=== PATIENT | female | born 1960 | race Caucasian/White ===

== ENCOUNTER → 2016-08-15 | Outpatient (REF) | payer OTHER ==
[~2016-08-15] MED LIST: *PREMTA; ATEN100T; DIOV80TA; EFFE75CA75; HYDR25TA6; PERC5TAB8
== END ==
LOC: M SFHCCLAY 07:25
PROVIDERS: ATTEND Nurse Practitioner Family
DX: R73.01 Impaired fasting glucose (principal); E78.4 Other hyperlipidemia; E55.9 Vitamin D deficiency, unspecified

== ENCOUNTER → 2016-08-15 | Outpatient (REF) | payer OTHER | LOC: M LAB REF 17:31 | PROVIDERS: ATTEND Nurse Practitioner Women's Health | DX: Z12.4 Encounter for screening for malignant neoplasm of cervix (principal) ==

== ENCOUNTER → 2016-08-23 | Outpatient (CLI) | payer OTHER ==
--- NOTE | 2016-08-23 12:04 | REPMRS ---
Patient History The patient states she had a clinical breast exam in 08/2016. Patient is postmenopausal and has history of other cancer at age 49. No known family history of cancer. Digital Woman Screen Mammo: August 23, 2016 - Exam #: [id number] Bilateral CC and MLO view(s) were taken. Technologist: Johanna Hayes, Technologist Prior study comparison: March 07, 2005, bilateral screening mammogram performed at [facility]. FINDINGS: There are scattered fibroglandular densities. There is no evidence of cancer on this mammogram. ASSESSMENT: BI-RADS/ACR category 2 mammogram. Benign finding(s). Recommendation Routine screening mammogram of both breasts in 1 year (for women over age 40). This mammogram was interpreted with the aid of an FDA-approved computer-aided dectection system. Electronically Signed By: Dominic Rodriguez MD 08/23/16 [id number]
--- NOTE | 2016-08-23 14:08 | REP ---
PELVIC ULTRASOUND: Real-time sonographic evaluation of the pelvis is performed utilized transabdominal and endovaginal technique. Bladder measures 3.3 x 4.1 x 7.3 cm. Uterus measures 8.1 x 3.8 x 5.5 cm. Endometrium is significantly thickened with heterogeneous echotexture with a maximum AP diameter of 17 mm. Nabothian cysts are seen in the region of the cervix. Largest is 1.3 cm in diameter. The ovaries appear normal in size and echotexture, right ovary measures 2.1 x 1.2 x 2.3 cm and left ovary 2.1 x 1.4 x 2.3 cm. I see no adnexal mass or free fluid. IMPRESSION: Significantly thickened endometrium with heterogeneous echotexture. Differential diagnosis would include endometrial neoplasm or hyperplasia. Recommend endometrial sampling.
== END ==
LOC: M WHC 09:55
PROVIDERS: ATTEND Nurse Practitioner Women's Health
DX: Z12.31 Encounter for screening mammogram for malignant neoplasm of breast (principal); Z78.0 Asymptomatic menopausal state; N95.0 Postmenopausal bleeding
CPT/HCPCS: 76830; 76856; G0202

== ENCOUNTER → 2016-08-23 | Outpatient (REF) | payer OTHER | LOC: M SFHCWAGY 11:12 | PROVIDERS: ATTEND Nurse Practitioner Women's Health | DX: N95.0 Postmenopausal bleeding (principal) ==

== ENCOUNTER → 2016-10-18 | Day surgery (SDC) | payer OTHER ==
[~2016-10-18] VITALS: Ht 157.5 cm; Wt 87.0 kg
[~2016-10-18] MED LIST changes: +ATEN100T PO; +DRIS50002 PO; +HYDR25TAB PO; +KETOROLAC 30 MG/ML VIAL (J1885) IV SCH; +KETOROLAC 60 MG/2 ML VIAL (J1885) As Ordered ONE; +LIDOCAINE 2% INJ 100 MG/5 ML SDV (FOR ANES.) As Ordered ONE; +LR 1,000 ML IV ONE; +LR 1,000 ML IV SCH; +MIDAZOLAM INJ 2 MG/2 ML VIAL (J2250) As Ordered ONE; +ONDANSETRON 4MG/2ML VIAL (J2405) As Ordered ONE; +ONDANSETRON 4MG/2ML VIAL (J2405) IV PRN; +PERCOCET 5MG/325MG TAB PO PRN; +PRAV10TA3 PO; +PROPOFOL 200 MG/20 ML VIAL As Ordered ONE; +VALS80TA PO; +dexameTHASONE 4 MG/ML 1ML VIAL (J1100) As Ordered ONE; +ePHEDrine SULFATE 25 MG/5 ML(5MG/ML) SYRINGE As Ordered ONE; +fentaNYL 100 MCG/2 ML INJECTION (J3010) As Ordered ONE; +fentaNYL 100 MCG/2 ML INJECTION (J3010) IV PRN
[2016-10-18 12:22] LABS: MEAN CORPUSCULAR HEMOGLOBIN 32.5 pg (27.0-33.0); MEAN CORPUSCULAR HGB CONC 34.5 g/dl (32.0-36.5); MEAN CORPUSCULAR VOLUME 94.2 fl (80.0-96.0); RED CELL DISTRIBUTION WIDTH 11.3 % (11.5-14.5); WHITE BLOOD COUNT 9.6 K/mm3 (4.0-10.0)
[2016-10-18 16:51] VITALS: BP 115/70
--- NOTE | 2016-10-18 18:27 | RO ---
DATE OF PROCEDURE: 10/18/2016 PREPROCEDURE DIAGNOSIS: 1. Postmenopausal bleeding. POSTPROCEDURE DIAGNOSES: 1. Postmenopausal bleeding. 2. Endometrial polyps. PROCEDURE PERFORMED: Hysteroscopy, MyoSure with dilation and curettage. SURGEON: Karmen Acosta MD PUBLIC AFFAIRS OFFICER: None. ANESTHESIA: General anesthesia via laryngeal mask airway. ESTIMATED BLOOD LOSS: 5 mL. SPECIMENS: 1. Endometrial polyps. 2. Endometrial curettings. PREOPERATIVE ANTIBIOTICS: None. INTRAVENOUS FLUIDS: 1000 mL of lactated Ringer's solution. URINE OUTPUT: 300 mL. OPERATIVE FINDINGS: There were two posterior endometrial polyps, one approximately 2 cm in size, followed by endometrial polyp approximately 6 cm in size. Bilateral ostia were visualized with the remainder of the endometrial cavity was atrophic consistent with the patient's age. DESCRIPTION OF PROCEDURE: After informed consent was obtained and written consent was reviewed, the patient was then brought to the operating room where general anesthesia was obtained. She was then placed in the lithotomy position and was prepped and draped in a normal sterile fashion. Time out in the operating room was then performed identifying the patient, procedure to be performed, as well as drug allergies. A bivalve speculum was then placed revealing the cervix. The anterior lip of the cervix was grasped with a single tooth tenaculum. The cervix was then sequentially dilated using Hanks dilators. The hysteroscope was then advanced through the cervical os and the endometrial cavity was surveyed with the above noted findings. Next, the MyoSure was then inserted through the hysteroscope and endometrial polyps were morcellated with good hemostasis noted. The hysteroscope was then removed. A sharp curette was then advanced through the cervical os to the level of the fundus and the uterus was curetted in a 360 degree fashion with minimal muscle tissue obtained. Tenaculum was then removed from the cervix. Tenaculum sites were found to be hemostatic. Speculum was removed, in and out catheter was performed productive of 300 mL of clear urine. The patient was then taken out of the lithotomy position, was awakened from general anesthesia and taken to recovery in stable condition. Counts were correct.
== END | disposition home or self-care (01) ==
LOC: M SDC 11:52
PROVIDERS: ATTEND Obstetrics & Gynecology
DX: N95.0 Postmenopausal bleeding (principal); N84.0 Polyp of corpus uteri; N93.8 Other specified abnormal uterine and vaginal bleeding; I10 Essential (primary) hypertension; F32.9 Major depressive disorder, single episode, unspecified; E78.00 Pure hypercholesterolemia, unspecified; K76.0 Fatty (change of) liver, not elsewhere classified; R91.1 Solitary pulmonary nodule; E11.9 Type 2 diabetes mellitus without complications; R06.83 Snoring; Z79.899 Other long term (current) drug therapy; Z85.118 Personal history of other malignant neoplasm of bronchus and lung; Z78.0 Asymptomatic menopausal state; Z87.891 Personal history of nicotine dependence
CPT/HCPCS: 36415; 58558; 85027; 86850; 86900; 86901; 88305; J1100; J1885; J2250; J2405; J3010

== ENCOUNTER → 2016-10-23 | Outpatient (CLI) | payer OTHER ==
[~2016-10-23] MED LIST changes: -KETOROLAC 30 MG/ML VIAL (J1885) IV SCH; -KETOROLAC 60 MG/2 ML VIAL (J1885) As Ordered ONE; -LIDOCAINE 2% INJ 100 MG/5 ML SDV (FOR ANES.) As Ordered ONE; -LR 1,000 ML IV ONE; -LR 1,000 ML IV SCH; -MIDAZOLAM INJ 2 MG/2 ML VIAL (J2250) As Ordered ONE; -ONDANSETRON 4MG/2ML VIAL (J2405) As Ordered ONE; -ONDANSETRON 4MG/2ML VIAL (J2405) IV PRN; -PERCOCET 5MG/325MG TAB PO PRN; -PROPOFOL 200 MG/20 ML VIAL As Ordered ONE; -dexameTHASONE 4 MG/ML 1ML VIAL (J1100) As Ordered ONE; -ePHEDrine SULFATE 25 MG/5 ML(5MG/ML) SYRINGE As Ordered ONE; -fentaNYL 100 MCG/2 ML INJECTION (J3010) As Ordered ONE; -fentaNYL 100 MCG/2 ML INJECTION (J3010) IV PRN
--- NOTE | 2016-10-24 05:27 | REP ---
Clinical: Follow-up pulmonary nodule. Comparison: 10/23/2015, 10/26/2014. Findings: The bilateral lung raza are relatively well aerated, symmetric and essentially clear. A small 4 mm noncalcified nodule in the anterior right upper lobe remains stable. No new acute consolidation, nodule or mass lesion appreciated. No pleural effusion/reaction. No pneumothorax. Tracheobronchial tree is patent. Mediastinum including thoracic aorta, vasculature and heart/pericardium are normal. No adenopathy. Surrounding musculoskeletal structures are intact. Impression: 1. Stable 4 mm noncalcified nodule in the right upper lobe requires no further evaluation. 2. No new acute mediastinal or pleuroparenchymal process appreciated. Signed by Major Toledo MD 10/24/2016 05:19 A
== END ==
LOC: M RAD 14:44
PROVIDERS: ATTEND Internal Medicine Pulmonary Disease
DX: R91.8 Other nonspecific abnormal finding of lung field (principal)

== ENCOUNTER → 2016-12-06 | Outpatient (REF) | payer OTHER ==
[2016-12-06 12:30] LABS: MEAN CORPUSCULAR HEMOGLOBIN 32.4 pg (27.0-33.0); MEAN CORPUSCULAR HGB CONC 34.9 g/dl (32.0-36.5); MEAN CORPUSCULAR VOLUME 92.8 fl (80.0-96.0); RED CELL DISTRIBUTION WIDTH 11.2 % (11.5-14.5); WHITE BLOOD COUNT 7.4 K/mm3 (4.0-10.0)
[2016-12-06 12:35] LABS: ALBUMIN 3.8 GM/DL (3.2-5.2); ALBUMIN/GLOBULIN RATIO 1.15 (1.00-1.93); ALKALINE PHOSPHATASE 44 U/L (45-117); ALT/SGPT 41 U/L (12-78); ANION GAP 7 MEQ/L (8-16); AST/SGOT 17 U/L (15-37); BILIRUBIN,TOTAL 0.4 MG/DL (0.2-1.0); BLOOD UREA NITROGEN 14 MG/DL (7-18); CALCIUM LEVEL 9.6 MG/DL (8.5-10.1); CARBON DIOXIDE LEVEL 28 MEQ/L (21-32); CHLORIDE LEVEL 106 MEQ/L (98-107); CHOLESTEROL LEVEL 146 MG/DL (<200); CREATININE FOR GFR 0.82 MG/DL (0.55-1.02); GLOMERULAR FILTRATION RATE > 60.0 (>51); GLUCOSE, FASTING 110 MG/DL (70-105); POTASSIUM SERUM 3.7 MEQ/L (3.5-5.1); SODIUM LEVEL 141 MEQ/L (136-145); TOTAL PROTEIN 7.1 GM/DL (6.4-8.2); TRIGLYCERIDES LEVEL 105 MG/DL (<150)
== END ==
LOC: M SFHCCLAY 07:21
PROVIDERS: ATTEND Nurse Practitioner Family
DX: I10 Essential (primary) hypertension (principal); E11.9 Type 2 diabetes mellitus without complications; E78.4 Other hyperlipidemia; E55.9 Vitamin D deficiency, unspecified

== ENCOUNTER → 2017-04-02 | Outpatient (REF) | payer OTHER | LOC: M SFHCCLAY 07:17 | PROVIDERS: ATTEND Nurse Practitioner Family | DX: E55.9 Vitamin D deficiency, unspecified (principal); E11.9 Type 2 diabetes mellitus without complications; E78.4 Other hyperlipidemia ==

== ENCOUNTER → 2017-08-08 | Outpatient (REF) | payer OTHER ==
[2017-08-08 12:05] LABS: CHOLESTEROL LEVEL 161 MG/DL (<200); CHOLESTEROL RISK RATIO 2.639 (<5); HDL CHOLESTEROL 61 MG/DL (>40); NON-HDL-C 100 MG/DL; TRIGLYCERIDES LEVEL 95 MG/DL (<150)
[2017-08-08 12:09] LABS: TOTAL 25(OH) VITAMIN D 70.7 NG/ML (30.0-100.0)
[2017-08-08 12:43] LABS: ESTIMATED AVERAGE GLUCOSE 128 MG/DL (60-110); HEMOGLOBIN A1c 6.1 %
== END ==
LOC: M SFHCCLAY 07:21
DX: E11.9 Type 2 diabetes mellitus without complications (principal); E78.4 Other hyperlipidemia; E55.9 Vitamin D deficiency, unspecified

== ENCOUNTER 2017-09-09 16:45 | Inpatient (IN) | payer OTHER ==
[2017-09-09] MEDS: NS 1,000 ML IV ×2 (18:00→19:15)
[2017-09-09 18:12] LABS: ABG BASE EXCESS -5.3 (-2.0-2.0); ABG HCO3 16.9 MEQ/L (22.0-26.0); ABG O2 SATURATION 97.2 % (95.0-99.0); ABG PARTIAL PRESSURE CO2 24.1 mmHg (35.0-45.0); ABG PARTIAL PRESSURE O2 92.7 mmHg (75.0-100.0); ABG STANDARD HCO3 20.1 MEQ/L (22.0-26.0); ABG TOTAL CO2 17.7 MEQ/L (22.0-29.0); ABG pH (ARTERIAL) 7.464 UNITS (7.350-7.450)
[2017-09-09 18:29] LABS: BASO % 0.1 % (0.0-1.0); HEMOGLOBIN 11.3 g/dl (12.0-15.5); LYMPH # 0.5 10^3/uL (1.5-4.5); LYMPH % 2.6 % (24.0-44.0); MEAN CORPUSCULAR HEMOGLOBIN 31.6 pg (27.0-33.0); MEAN CORPUSCULAR HGB CONC 36.5 g/dl (32.0-36.5); MEAN CORPUSCULAR VOLUME 86.6 fl (80.0-96.0); MONO % 9.6 % (0.0-5.0); NEUTROPHILS # 17.9 10^3/uL (1.8-7.7); NEUTROPHILS % 86.7 % (36.0-66.0); PLATELET COUNT, AUTOMATED 350 10^3/uL (150-450); RED BLOOD COUNT 3.58 10^6/uL (4.00-5.40); RED CELL DISTRIBUTION WIDTH 11.6 % (11.5-14.5); WHITE BLOOD COUNT 20.7 10^3/uL (4.0-10.0)
[2017-09-09 18:54] LABS: INR 1.19; PROTHROMBIN TIME 15.3 SECONDS (12.4-14.5)
[2017-09-09 18:55] LABS: PARTIAL THROMBOPLASTIN TIME 35.7 SECONDS (26.8-37.9)
[2017-09-09] MEDS: PIPERACILLIN/TAZOBACTAM SOD 4.5 GM in D5W MINI-BAG PLUS 50 ML IV (18:58)
[2017-09-09] MEDS: ACETAMINOPHEN 325 MG TAB PO (18:58)
[2017-09-09 19:00] LABS: LACTIC ACID SEPSIS PROTOCOL 1.7 MMOL/L (0.4-2.0)
[2017-09-09 19:28] LABS: INFLUENZA A AMPLIFICATION NEGATIVE (NEGATIVE); INFLUENZA B AMPLIFICATION NEGATIVE (NEGATIVE)
[2017-09-09 19:57] LABS: ALKALINE PHOSPHATASE 75 U/L (45-117); ALT/SGPT 31 U/L (12-78); AMYLASE 46 U/L (25-115); AST/SGOT 18 U/L (7-37); BILIRUBIN,DIRECT 0.3 MG/DL (0.0-0.2); BILIRUBIN,TOTAL 0.5 MG/DL (0.2-1.0); BLOOD UREA NITROGEN 72 MG/DL (7-18); CALCIUM LEVEL 7.9 MG/DL (8.5-10.1); CARBON DIOXIDE LEVEL 17 MEQ/L (21-32); CPK CREATINE PHOSPHOKINASE 24 U/L (26-192); CREATININE FOR GFR 2.32 MG/DL (0.55-1.30); GLUCOSE, FASTING 135 MG/DL (70-100); SODIUM LEVEL 138 MEQ/L (136-145)
[2017-09-09 19:58] LABS: TOTAL PROTEIN 6.5 GM/DL (6.4-8.2); TROPONIN I < 0.02 NG/ML (< 0.10)
[2017-09-09 20:00] LABS: CK-MB VALUE MASS < 1.0 NG/ML (<3.6); MB/CK RELATIVE INDEX 4.16 (< OR =4)
[2017-09-09 20:33] LABS: ALBUMIN 2.7 GM/DL (3.2-5.2); ALBUMIN/GLOBULIN RATIO 0.71 (1.00-1.93); ANION GAP 16 MEQ/L (8-16); CHLORIDE LEVEL 105 MEQ/L (98-107)
[2017-09-09] MEDS ORDERED: DEXTROSE 50% 50 ML SYRINGE IV (20:45)
[2017-09-09] MEDS ORDERED: GLUCAGON FOR INJ 1 MG VIAL (J1610) SC (20:45)
[2017-09-09] MEDS ORDERED: ONDANSETRON 4MG/2ML VIAL (J2405) IV (20:45)
[2017-09-09] MEDS ORDERED: GLUCOSE 4 GM CHEW TABLET PO (20:45)
[2017-09-09] MEDS ORDERED: ACETAMINOPHEN TAB 650MG DOSE (2X325MG) PO (20:45)
[2017-09-09] MEDS ORDERED: ONDANSETRON 4 MG TAB (S0181) PO (20:45)
[2017-09-09] MEDS ORDERED: NOREPINEPHRINE 4 MG/4 ML AMP As Ordered (20:48)
[2017-09-09] MEDS: NOREPINEPHRINE BITARTRATE 8 MG in D5W 492 ML IV (20:55)
[2017-09-09] MEDS: HumaLOG INSULIN (NovoLOG) PER UNIT SC (21:00)
[2017-09-09] MEDS ORDERED: LIDOCAINE 1% MDV 20ML VIAL As Ordered (21:40)
[2017-09-09] MEDS: KCL 40MEQ in NS 1000ML 1,000 ML IV (22:24)
[2017-09-09] MEDS: LIDOCAINE 1% MDV 20ML VIAL SC (22:26)
[2017-09-09 22:40] LABS: BEDSIDE GLUCOSE 161 MG/DL (70-105)
[2017-09-09] MEDS: POTASSIUM CHLORIDE 10 MEQ SR TABLET PO (23:34)
[2017-09-09 23:57] LABS: APPEARANCE, URINE HAZY (CLEAR); BACTERIA, URINE AUTO 1+ (NEGATIVE); BILIRUBIN, URINE AUTO NEGATIVE (NEGATIVE); BLOOD, URINE BLOOD 2+ (NEGATIVE); COLOR, URINE YELLOW (YELLOW); GLUCOSE, URINE (UA) AUTO NEGATIVE (NEGATIVE); KETONE, URINE AUTO NEGATIVE (NEGATIVE); LEUKOCYTE ESTERASE, URINE AUTO 3+ (NEGATIVE); NITRITE, URINE AUTO NEGATIVE (NEGATIVE); PROTEIN, URINE AUTO NEGATIVE (NEGATIVE); RBC, URINE AUTO 12 /HPF (0-3); SPECIFIC GRAVITY URINE AUTO 1.009 (1.002-1.035); SQUAMOUS EPITHELIAL CELL UR AU 0 /HPF (0-6); UROBILINOGEN, URINE AUTO 0.2 mg/dL (0.0-2.0); WBC, URINE AUTO 109 /HPF (0-3)
[2017-09-10] MEDS: PIPERACILLIN/TAZOBACTAM SOD 3.375 GM in D5W MINI-BAG PLUS 50 ML IV ×4 (01:56→18:43)
[2017-09-10 05:47] LABS: BASO % 0.2 % (0.0-1.0); HEMATOCRIT 28.4 % (36.0-47.0); HEMOGLOBIN 10.1 g/dl (12.0-15.5); LYMPH # 0.6 10^3/uL (1.5-4.5); LYMPH % 4.7 % (24.0-44.0); MEAN CORPUSCULAR HEMOGLOBIN 31.6 pg (27.0-33.0); MEAN CORPUSCULAR HGB CONC 35.6 g/dl (32.0-36.5); MEAN CORPUSCULAR VOLUME 88.8 fl (80.0-96.0); MONO # 1.5 10^3/uL (0.0-0.8); MONO % 10.8 % (0.0-5.0); NEUTROPHILS # 11.3 10^3/uL (1.8-7.7); NEUTROPHILS % 83.3 % (36.0-66.0); PLATELET COUNT, AUTOMATED 309 10^3/uL (150-450); RED CELL DISTRIBUTION WIDTH 11.7 % (11.5-14.5); WHITE BLOOD COUNT 13.6 10^3/uL (4.0-10.0)
[2017-09-10 06:09] LABS: ANION GAP 10 MEQ/L (8-16); BLOOD UREA NITROGEN 44 MG/DL (7-18); CALCIUM LEVEL 8.5 MG/DL (8.5-10.1); CARBON DIOXIDE LEVEL 21 MEQ/L (21-32); CHLORIDE LEVEL 109 MEQ/L (98-107); CREATININE FOR GFR 1.49 MG/DL (0.55-1.30); GLOMERULAR FILTRATION RATE 38.4 (>51); GLUCOSE, FASTING 150 MG/DL (70-100); MAGNESIUM LEVEL 2.2 MG/DL (1.8-2.4); POTASSIUM SERUM 3.4 MEQ/L (3.5-5.1); SODIUM LEVEL 140 MEQ/L (136-145)
[2017-09-10] MEDS: KCL 40MEQ in NS 1000ML 1,000 ML IV ×3 (06:13→20:45)
[2017-09-10] MEDS: HumaLOG INSULIN (NovoLOG) PER UNIT SC ×4 (09:19→20:31)
[2017-09-10] MEDS: POTASSIUM CHLORIDE 10 MEQ SR TABLET PO ×2 (10:47→15:23)
[2017-09-10 13:03] LABS: BEDSIDE GLUCOSE 117 MG/DL (70-105)
[2017-09-10 17:05] LABS: BEDSIDE GLUCOSE 134 MG/DL (70-105)
[2017-09-10 20:26] LABS: BEDSIDE GLUCOSE 146 MG/DL (70-105)
[2017-09-10 20:39] LABS: BEDSIDE GLUCOSE 135 MG/DL (70-105)
[2017-09-11] MEDS: PIPERACILLIN/TAZOBACTAM SOD 3.375 GM in D5W MINI-BAG PLUS 50 ML IV ×4 (01:00→18:30)
[2017-09-11 06:28] LABS: BASO % 0.3 % (0.0-1.0); EOS % 0.1 % (0.0-3.0); HEMATOCRIT 27.8 % (36.0-47.0); HEMOGLOBIN 9.8 g/dl (12.0-15.5); IMMATURE GRANULOCYTE % 1.7 % (0-3.0); LYMPH # 1.4 10^3/uL (1.5-4.5); LYMPH % 14.5 % (24.0-44.0); MEAN CORPUSCULAR HEMOGLOBIN 31.9 pg (27.0-33.0); MEAN CORPUSCULAR HGB CONC 35.3 g/dl (32.0-36.5); MEAN CORPUSCULAR VOLUME 90.6 fl (80.0-96.0); MONO # 1.8 10^3/uL (0.0-0.8); MONO % 18.9 % (0.0-5.0); NEUTROPHILS # 6.2 10^3/uL (1.8-7.7); NEUTROPHILS % 64.5 % (36.0-66.0); PLATELET COUNT, AUTOMATED 307 10^3/uL (150-450); RED BLOOD COUNT 3.07 10^6/uL (4.00-5.40); WHITE BLOOD COUNT 9.6 10^3/uL (4.0-10.0)
[2017-09-11 06:51] LABS: ANION GAP 7 MEQ/L (8-16); BLOOD UREA NITROGEN 16 MG/DL (7-18); CALCIUM LEVEL 8.4 MG/DL (8.5-10.1); CARBON DIOXIDE LEVEL 23 MEQ/L (21-32); CHLORIDE LEVEL 114 MEQ/L (98-107); CREATININE FOR GFR 0.79 MG/DL (0.55-1.30); GLOMERULAR FILTRATION RATE > 60.0 (>51); GLUCOSE, FASTING 108 MG/DL (70-100); MAGNESIUM LEVEL 1.5 MG/DL (1.8-2.4); POTASSIUM SERUM 4.5 MEQ/L (3.5-5.1); SODIUM LEVEL 144 MEQ/L (136-145)
[2017-09-11] MEDS: HumaLOG INSULIN (NovoLOG) PER UNIT SC ×4 (07:30→21:00)
[2017-09-11] MEDS: MAG SULF 1GM/100ML (MAG RUN) 1 GM in APPROPRIATE DILUENT 1 EA IV ×2 (09:09→10:30)
[2017-09-11 11:39] LABS: BEDSIDE GLUCOSE 190 MG/DL (70-105)
[2017-09-11 17:30] LABS: BEDSIDE GLUCOSE 99 MG/DL (70-105)
[2017-09-11 21:18] LABS: BEDSIDE GLUCOSE 114 MG/DL (70-105)
[2017-09-11] MEDS: SODIUM CHLORIDE 0.9% INJ 10 ML SYR IV (22:00)
[2017-09-12] MEDS: SODIUM CHLORIDE 0.9% INJ 10 ML SYR IV ×3 (01:14→08:30)
[2017-09-12] MEDS: PIPERACILLIN/TAZOBACTAM SOD 3.375 GM in D5W MINI-BAG PLUS 50 ML IV ×2 (01:14→06:43)
[2017-09-12 07:12] LABS: BASO % 0.3 % (0.0-1.0); EOS # 0.1 10^3/uL (0.0-0.50); EOS % 0.6 % (0.0-3.0); HEMATOCRIT 29.6 % (36.0-47.0); HEMOGLOBIN 10.2 g/dl (12.0-15.5); IMMATURE GRANULOCYTE % 1.9 % (0-3.0); LYMPH # 1.8 10^3/uL (1.5-4.5); MEAN CORPUSCULAR HEMOGLOBIN 31.3 pg (27.0-33.0); MEAN CORPUSCULAR HGB CONC 34.5 g/dl (32.0-36.5); MEAN CORPUSCULAR VOLUME 90.8 fl (80.0-96.0); MONO # 1.6 10^3/uL (0.0-0.8); MONO % 14.1 % (0.0-5.0); NEUTROPHILS # 7.5 10^3/uL (1.8-7.7); NEUTROPHILS % 67.1 % (36.0-66.0); PLATELET COUNT, AUTOMATED 350 10^3/uL (150-450); RED BLOOD COUNT 3.26 10^6/uL (4.00-5.40); RED CELL DISTRIBUTION WIDTH 11.8 % (11.5-14.5); WHITE BLOOD COUNT 11.2 10^3/uL (4.0-10.0)
[2017-09-12] MEDS: HumaLOG INSULIN (NovoLOG) PER UNIT SC (07:30)
[2017-09-12 07:35] LABS: ANION GAP 8 MEQ/L (8-16); BLOOD UREA NITROGEN 13 MG/DL (7-18); CALCIUM LEVEL 8.7 MG/DL (8.5-10.1); CARBON DIOXIDE LEVEL 26 MEQ/L (21-32); CHLORIDE LEVEL 109 MEQ/L (98-107); CREATININE FOR GFR 0.65 MG/DL (0.55-1.30); GLOMERULAR FILTRATION RATE > 60.0 (>51); GLUCOSE, FASTING 98 MG/DL (70-100); MAGNESIUM LEVEL 1.6 MG/DL (1.8-2.4); SODIUM LEVEL 143 MEQ/L (136-145)
== END 2017-09-12 11:50 | disposition home or self-care (01) | DRG 871 ==
LOC: M PED 09-11 14:46 → M ED 16:45 → M ED INP 20:33 → M ICU 21:02
PROC: 02HV33Z Insertion of Infusion Device into Superior Vena Cava, Percutaneous Approach (ICD-10-PCS; principal; 2017-09-09)
DX: A41.9 Sepsis, unspecified organism (principal); R65.21 Severe sepsis with septic shock; N39.0 Urinary tract infection, site not specified; N17.9 Acute kidney failure, unspecified; K52.9 Noninfective gastroenteritis and colitis, unspecified; I10 Essential (primary) hypertension; E11.9 Type 2 diabetes mellitus without complications; B96.1 Klebsiella pneumoniae [K. pneumoniae] as the cause of diseases classified elsewhere; E83.42 Hypomagnesemia; E78.5 Hyperlipidemia, unspecified; E87.6 Hypokalemia; Z85.118 Personal history of other malignant neoplasm of bronchus and lung; Z79.84 Long term (current) use of oral hypoglycemic drugs; Z79.899 Other long term (current) drug therapy

== ENCOUNTER → 2017-10-21 | Outpatient (CLI) | payer OTHER | LOC: M RAD 11:44 | DX: R91.8 Other nonspecific abnormal finding of lung field (principal) | CPT/HCPCS: 71250 ==

== ENCOUNTER → 2018-05-06 | Outpatient (CLI) | payer OTHER ==
[~2018-05-06] MED LIST changes: +ACET1TAB55 PO; +ATEN50TA2 PO; +CEPH500T PO; -DRIS50002 PO; +DRIS50003 PO; +METF500T4 PO
--- NOTE | 2018-05-06 16:50 | REP ---
CT chest without contrast: History: Abnormal lung field findings. Comparison chest CT is reviewed, the most recent of which is from October 21, 2017. The most remote comparison chest CT study is from June 02, 2009. CT findings: There is a 5 mm noncalcified nodule in the right lung apex, which is visible on multiple prior studies dating back to 2012. It appears to be very gradually enlarging. Today's CT images demonstrate some surrounding spiculation. I cannot exclude a low grade malignancy. In addition, today's study demonstrates a new peribronchovascular non solid nodule in the right upper lobe 7 mm in diameter visible on axial CT image number 22 of 102 in series 301 of today's study. There are two adjacent small nodules, each approximately 3 mm in diameter. One of these is stable from multiple prior studies. There is also a subpleural area of somewhat nodular fibrosis in the superior segment of the right lower lobe on today's study, image number 31 of 102 which is stable long-term and felt to be benign. There is an old stable 2 mm nodule in the right middle lobe on page 49 of 102 of today's study also stable. No other significant pulmonary nodule is appreciated. No pleural or pericardial effusion is seen. No hilar or mediastinal mass or adenopathy is observed. There is mild stable pleuroparenchymal fibrosis in the left base. The patient is status post prior left lower lobectomy. Surgical sutures are seen in the left infrahilar region. No bony lesion is appreciated. There is fatty infiltration of the liver diffusely. No adrenal lesion is observed. Impression: 1. 5 mm slightly spiculated appearing very slowly enlarging predominately solid nodule in the right lung apex . Low grade malignancy cannot be excluded. 2. There is a new non solid 7 mm nodular density elsewhere in the right upper lobe posteriorly. 3. There are other long-term stable benign appearing nodules in the right lung. Post thoracotomy changes are noted on the left. Electronically Signed by Chidi Hart MD 05/06/2018 05:09 P
== END ==
LOC: M RAD 15:44
PROVIDERS: ATTEND Internal Medicine Pulmonary Disease
DX: R91.8 Other nonspecific abnormal finding of lung field (principal)

== ENCOUNTER → 2018-06-01 | Outpatient (REF) | payer OTHER ==
[2018-06-01 11:31] LABS: ALBUMIN 3.9 GM/DL (3.2-5.2); ALT/SGPT 65 U/L (12-78); BILIRUBIN,TOTAL 0.5 MG/DL (0.2-1.0); BLOOD UREA NITROGEN 15 MG/DL (7-18); CALCIUM LEVEL 9.2 MG/DL (8.5-10.1); CARBON DIOXIDE LEVEL 31 MEQ/L (21-32); CHLORIDE LEVEL 102 MEQ/L (98-107); CHOLESTEROL LEVEL 164 MG/DL (<200); CHOLESTEROL RISK RATIO 2.342 (<5); CREATININE FOR GFR 0.76 MG/DL (0.55-1.30); GLOMERULAR FILTRATION RATE > 60.0 (>51); GLUCOSE, FASTING 104 MG/DL (70-100); HDL CHOLESTEROL 70 MG/DL (>40); LDL CHOLESTEROL 70 MG/DL (<100); NON-HDL-C 94 MG/DL; POTASSIUM SERUM 3.9 MEQ/L (3.5-5.1); SODIUM LEVEL 139 MEQ/L (136-145); TOTAL PROTEIN 6.9 GM/DL (6.4-8.2); TRIGLYCERIDES LEVEL 120 MG/DL (<150)
[2018-06-01 11:41] LABS: HEMOGLOBIN A1c 6.1 %
== END ==
LOC: M SFHCCLAY 07:51
PROVIDERS: ATTEND Family Medicine
DX: I10 Essential (primary) hypertension (principal); E11.9 Type 2 diabetes mellitus without complications; E78.49 Other hyperlipidemia

== ENCOUNTER → 2018-08-19 | Outpatient (CLI) | payer OTHER ==
--- NOTE | 2018-09-04 19:00 | REP ---
CT chest without contrast: Repeat dictation. History: Abnormal lung field findings. There are multiple comparison chest CTs dating back to 2009. CT findings: A somewhat spiculated predominantly solid right upper lobe nodule is again seen with overall dimensions today of 9 mm. The solid component measures 5 mm. At least a non solid component has grown since the October 27, 2013 study when the solid appearing nodule measured 4 mm. There is a stable 4 mm nodule in the right upper lobe on page 21. Adjacent to this on page 22, there is a ground-glass opacity which measures 10 mm in greatest diameter. This appears a little larger than it did on May 06, 2018. There is a stable 4 mm nodule in the superior segment of the right lower lobe on page 30 is unchanged from the recent prior study. Post thoracotomy changes are noted on the left. No other significant pulmonary nodule is appreciated. The largest pretracheal lymph node measures 11 x 18 mm. This appears to be unchanged from most recent prior study. No new lymph nodes are seen. There is mild fatty infiltration of the liver. There is equivocal thickening of the medial limb of the adrenal gland on the right unchanged. [place] artifact is seen from gallbladder clips. Impression: Interval enlargement in the spiculated part solid nodule in the right upper lobe and in a separate ground-glass opacity in the right upper lobe. There are thoracotomy changes on the left. Electronically Signed by Chidi Hart MD 09/05/2018 08:52 A
== END ==
LOC: M RAD 09:38
PROVIDERS: ATTEND Internal Medicine Pulmonary Disease
DX: R91.8 Other nonspecific abnormal finding of lung field (principal); Z98.890 Other specified postprocedural states

== ENCOUNTER → 2019-02-22 | Outpatient (REF) | payer OTHER ==
[~2019-02-22] MED LIST changes: +METF-791 PO; -METF500T4 PO
[2019-02-22 12:11] LABS: ALBUMIN 3.8 GM/DL (3.2-5.2); ALT/SGPT 89 U/L (12-78); BILIRUBIN,TOTAL 0.6 MG/DL (0.2-1.0); BLOOD UREA NITROGEN 18 MG/DL (7-18); CALCIUM LEVEL 9.8 MG/DL (8.5-10.1); CARBON DIOXIDE LEVEL 31 MEQ/L (21-32); CHLORIDE LEVEL 103 MEQ/L (98-107); CHOLESTEROL LEVEL 174 MG/DL (<200); CHOLESTEROL RISK RATIO 2.485 (<5); CREATININE FOR GFR 0.81 MG/DL (0.55-1.30); GLOMERULAR FILTRATION RATE > 60.0 (>51); GLUCOSE, FASTING 105 MG/DL (70-100); HDL CHOLESTEROL 70 MG/DL (>40); LDL CHOLESTEROL 82 MG/DL (<100); NON-HDL-C 104 MG/DL; POTASSIUM SERUM 4.2 MEQ/L (3.5-5.1); SODIUM LEVEL 138 MEQ/L (136-145); TOTAL PROTEIN 7.1 GM/DL (6.4-8.2); TRIGLYCERIDES LEVEL 112 MG/DL (<150)
[2019-02-22 13:05] LABS: HEMOGLOBIN A1c 6.2 %
== END ==
LOC: M SFHCCLAY 07:59
PROVIDERS: ATTEND Family Medicine
DX: I10 Essential (primary) hypertension (principal); E11.9 Type 2 diabetes mellitus without complications; E78.5 Hyperlipidemia, unspecified

== ENCOUNTER → 2019-04-06 | Outpatient (CLI) | payer OTHER ==
--- NOTE | 2019-04-06 10:40 | REP ---
Clinical: Follow up abnormal lung findings. Technique: Axial noncontrast images from the thoracic inlet to the upper abdomen with coronal and sagittal re-formations. Comparison: 08/19/2018. Findings: A non solid density in the periphery of the right upper lobe measures 9 mm and remains essentially stable (image 18). Small focus of ground-glass opacity and adjacent 3 mm nodule along the posterior right upper lobe remain unchanged. No new significant opacity, nodule or mass lesion is appreciated. No pleural effusion. No pneumothorax. Tracheobronchial tree is patent. Postsurgical changes at the left hilum and evidence for prior partial left lobectomy remains stable. Solitary 12 mm pretracheal lymph node is unchanged and no further adenopathy is appreciated. No aortic aneurysm. No cardiomegaly. No pericardial effusion. Musculoskeletal structures without focal osseous abnormality. Limited upper abdomen demonstrates normal bilateral adrenal glands and evidence of prior cholecystectomy. Impression: 1. Subtle changes in the right upper lobe and minimal scattered scarring as well as postsurgical changes involving the left hemithorax remains stable. 2. No new/acute or significant mediastinal or pleuroparenchymal process appreciated. Electronically Signed by Major Toledo MD 04/06/2019 10:32 A
== END ==
LOC: M RAD 09:50
PROVIDERS: ATTEND Internal Medicine Pulmonary Disease
DX: R91.8 Other nonspecific abnormal finding of lung field (principal)

== ENCOUNTER → 2019-07-01 | Outpatient (REF) | payer OTHER ==
[2019-07-01 13:07] LABS: HEMOGLOBIN A1c 6.3 %
== END ==
LOC: M SFHCCLAY 07:04
PROVIDERS: ATTEND Family Medicine
DX: E11.9 Type 2 diabetes mellitus without complications (principal)

== ENCOUNTER → 2019-09-29 | Outpatient (REF) | payer OTHER ==
[~2019-09-29] MED LIST changes: -METF-791 PO; +METF-838 PO
[2019-09-29 12:06] LABS: BLOOD UREA NITROGEN 16 MG/DL (7-18); CALCIUM LEVEL 9.7 MG/DL (8.5-10.1); CARBON DIOXIDE LEVEL 31 MEQ/L (21-32); CHLORIDE LEVEL 102 MEQ/L (98-107); CREATININE FOR GFR 0.72 MG/DL (0.55-1.30); GLOMERULAR FILTRATION RATE > 60.0 (>51); GLUCOSE, FASTING 114 MG/DL (70-100); SODIUM LEVEL 139 MEQ/L (136-145)
[2019-09-29 12:28] LABS: HEMOGLOBIN A1c 6.4 %
== END ==
LOC: M SFHCCLAY 08:06
PROVIDERS: ATTEND Family Medicine
DX: E11.9 Type 2 diabetes mellitus without complications (principal); I10 Essential (primary) hypertension

== ENCOUNTER → 2019-10-26 | Outpatient (CLI) | payer OTHER ==
--- NOTE | 2019-10-26 15:11 | REP ---
Clinical: Follow up abnormal lung findings. Comparison: 04/06/2019, 10/21/2017 . Technique: Axial noncontrast images from the thoracic inlet to the upper abdomen with coronal and sagittal re-formations. Findings: Two small part solid opacities in the right upper lobe are again identified and stable along with minimal scattered stable scarring. Evidence for prior left lower lobectomy again noted. No new acute consolidation, significant nodule or mass. No pleural effusion. No pneumothorax. Tracheobronchial tree is essentially patent/normal. No adenopathy. Mediastinum demonstrates atherosclerotic changes to the thoracic aorta without aneurysm. No cardiomegaly or pericardial effusion identified. Surrounding musculoskeletal structures are intact without acute osseous abnormality. Limited upper abdomen demonstrates normal bilateral adrenal glands and evidence for prior cholecystectomy. Impression: 1. The two part solid opacities in the right upper lobe are stable compared to 04/06/2019 and minimally more prominent than 10/21/2017. No new mediastinal or pleuroparenchymal process appreciated and no evidence for adenopathy or effusion noted. 2. Prior left lower lobectomy. Electronically Signed by Major Toledo MD 10/26/2019 03:02 P
== END ==
LOC: M RAD 13:58
PROVIDERS: ATTEND Nurse Practitioner Family
DX: R91.8 Other nonspecific abnormal finding of lung field (principal)

== ENCOUNTER → 2020-02-21 | Outpatient (REF) | payer OTHER ==
[2020-02-21 12:41] LABS: ALBUMIN 3.9 GM/DL (3.2-5.2); ALT/SGPT 58 U/L (12-78); BILIRUBIN,TOTAL 0.4 MG/DL (0.2-1.0); BLOOD UREA NITROGEN 18 MG/DL (7-18); CALCIUM LEVEL 9.6 MG/DL (8.5-10.1); CARBON DIOXIDE LEVEL 30 MEQ/L (21-32); CHLORIDE LEVEL 104 MEQ/L (98-107); CHOLESTEROL LEVEL 164 MG/DL (<200); CHOLESTEROL RISK RATIO 2.342 (<5); CREATININE FOR GFR 0.77 MG/DL (0.55-1.30); GLOMERULAR FILTRATION RATE > 60.0 (>51); GLUCOSE, FASTING 97 MG/DL (70-100); HDL CHOLESTEROL 70 MG/DL (>40); LDL CHOLESTEROL 79 MG/DL (<100); NON-HDL-C 94 MG/DL; POTASSIUM SERUM 4.1 MEQ/L (3.5-5.1); SODIUM LEVEL 140 MEQ/L (136-145); TOTAL PROTEIN 6.9 GM/DL (6.4-8.2); TRIGLYCERIDES LEVEL 74 MG/DL (<150)
[2020-02-21 12:49] LABS: TOTAL 25(OH) VITAMIN D 58.1 NG/ML (30.0-100.0)
[2020-02-21 13:23] LABS: HEMOGLOBIN A1c 5.7 %
== END ==
LOC: M SFHCCLAY 11:22
PROVIDERS: ATTEND Family Medicine
DX: E11.9 Type 2 diabetes mellitus without complications (principal); E55.9 Vitamin D deficiency, unspecified; I10 Essential (primary) hypertension; E78.5 Hyperlipidemia, unspecified

== ENCOUNTER → 2020-04-28 | Outpatient (CLI) | payer OTHER ==
--- NOTE | 2020-04-29 09:49 | REP ---
INDICATION: OTHER NONSPECIFIC ABNORMAL FINDING OF LUNG FIELD COMPARISON: Multiple prior examinations dating through 10/23/2015 TECHNIQUE: Axial noncontrast images from the thoracic inlet to the upper abdomen with coronal and sagittal reformations. This CT examination was performed using the following dose reduction techniques: Automated exposure control, adjustment of mA and/or kv according to the patient's size, and use of iterative reconstruction technique. FINDINGS: The part solid density in the anterior right upper lobe (image 17) measures roughly 9 mm and appears more prominent when compared with multiple prior examinations dating through 2016. The part solid density in the posterior right upper lobe (image 22) measures roughly 12 mm and appears more prominent when compared with multiple prior examinations dating through 2015. The bilateral lung raza are otherwise well aerated and stable/clear. No further acute process is appreciated. No pleural effusion. No pneumothorax. Evidence for prior left lower lobectomy again noted. No obvious acute adenopathy based on noncontrast evaluation. Surrounding musculoskeletal structures are intact. Limited upper abdomen demonstrates stable appearance of the bilateral adrenal glands and evidence for prior cholecystectomy. IMPRESSION: 1. The 2 part-solid densities in the right upper lobe appears slightly more prominent when compared with multiple examinations dating through 2016. correlation and follow-up including PET/CT may be warranted for further investigation. <Electronically signed by Major Toledo > 04/29/20 0218
== END ==
LOC: M RAD 16:01
PROVIDERS: ATTEND Nurse Practitioner Family
DX: R91.8 Other nonspecific abnormal finding of lung field (principal)

== ENCOUNTER → 2020-05-23 | Outpatient (CLI) | payer OTHER ==
--- NOTE | 2020-05-24 14:41 | REP ---
INDICATION: RESTAGING ABNORMAL FINDINGS OF LUNG. COMPARISON: CT-PET 06/29/2009, CT chest 08/19/2018, 04/06/2019, and 10/16/2019. CT abdomen and pelvis 05/30/2009. . TECHNIQUE: After the intravenous administration of 8.38 mCi of FDG 18 triplane whole-body PET-CT was performed from the skull base to the mid thigh FINDINGS: Anterior to the trachea in the aortic pulmonary window there is a lymph node which measures 1 cm in its short axis dimension, is rather a reniform in shape, and retains its fatty hilum. This has maximal SUV values of 2.5. There are no other areas of abnormal hypermetabolic activity seen in the neck, chest, abdomen, or pelvis. IMPRESSION: There is a single borderline lymph node in the mediastinum as described above. If 2.5 SUV maximal value is considered hypermetabolic than this otherwise unremarkable appearing lymph node must be considered as such. I therefore, recommend follow up as clinically relevant which may include a six-month follow-up PET-CT and follow-up with diagnostic chest CT in 3 months. <Electronically signed by Ryan Tucker > 05/24/20 [id number]
== END ==
LOC: M PLARAD 08:21
PROVIDERS: ATTEND Nurse Practitioner Family
DX: R91.8 Other nonspecific abnormal finding of lung field (principal)

== ENCOUNTER → 2020-08-11 | Outpatient (REF) | payer OTHER ==
[~2020-08-11] MED LIST changes: +HYDR-3490 PO; -HYDR25TAB PO
[2020-08-11 12:11] LABS: BLOOD UREA NITROGEN 17 MG/DL (7-18); CALCIUM LEVEL 9.9 MG/DL (8.5-10.1); CARBON DIOXIDE LEVEL 30 MEQ/L (21-32); CHLORIDE LEVEL 103 MEQ/L (98-107); CREATININE FOR GFR 0.76 MG/DL (0.55-1.30); GLOMERULAR FILTRATION RATE > 60.0 (>51); GLUCOSE, FASTING 104 MG/DL (70-100); POTASSIUM SERUM 4.3 MEQ/L (3.5-5.1); SODIUM LEVEL 139 MEQ/L (136-145)
[2020-08-11 12:34] LABS: MALB URINE SIEMENS 11.4 MG/L; MAU/CREAT RATIO 8.7 MCG/MG (0.0-30.0)
[2020-08-11 13:50] LABS: HEMOGLOBIN A1c 5.6 %
== END ==
LOC: M SFHCCLAY 08:06
PROVIDERS: ATTEND Family Medicine
DX: E11.9 Type 2 diabetes mellitus without complications (principal); I11.9 Hypertensive heart disease without heart failure

== ENCOUNTER → 2020-08-28 | Outpatient (CLI) | payer OTHER ==
[~2020-08-28] MED LIST changes: +ISOVUE-370 76% 100ML VIAL As Ordered ONE
--- NOTE | 2020-08-28 09:03 | REP ---
INDICATION: LUQ PAIN COMPARISON: Multiple examinations dating through 10/26/2012 TECHNIQUE: Axial contrast enhanced images from the thoracic inlet to the upper abdomen with coronal and sagittal reformations using 75 ml Isovue 370 intravenous contrast material. This CT examination was performed using the following dose reduction techniques: Automated exposure control, adjustment of mA and/or kv according to the patient's size, and use of iterative reconstruction technique. FINDINGS: The two part solid densities in the right upper lung zone remain stable as does the single precarinal lymph node. Recent PET-CT dated 05/23/2020 demonstrated no hypermetabolic activity to the right upper lobe densities and questionable hypermetabolic activity to the lymph node. The lung raza are otherwise essentially clear and without acute consolidation, new nodule or mass. No effusion. No pneumothorax. Tracheobronchial tree is patent. Musculoskeletal structures are intact and without acute osseous abnormality. Limited upper abdomen demonstrates normal bilateral adrenal glands, hepatosteatosis, and prior cholecystectomy. IMPRESSION: 1. Chronic stable part solid densities in the right upper lobe which are non hypermetabolic based on recent PET-CT. No new acute mediastinal or pleuroparenchymal process appreciated. 2. Single precarinal lymph node is stable in appearance and no further adenopathy has progressed. <Electronically signed by Major Toledo > 08/28/20 [id number]
== END ==
LOC: M RAD 08:16
PROVIDERS: ATTEND Nurse Practitioner Family
DX: R91.8 Other nonspecific abnormal finding of lung field (principal)
CPT/HCPCS: 71260; Q9967

== ENCOUNTER → 2020-09-14 | Outpatient (REF) | payer OTHER ==
[~2020-09-14] MED LIST changes: -ISOVUE-370 76% 100ML VIAL As Ordered ONE
[2020-09-14 16:16] LABS: PLATELET COUNT, AUTOMATED 319 10^3/uL (150-450)
[2020-09-14 16:31] LABS: INR 0.96
[2020-09-14 16:32] LABS: PARTIAL THROMBOPLASTIN TIME 30.7 SECONDS (24.2-38.5)
== END ==
LOC: M LABDRAWC 15:48
PROVIDERS: ATTEND Nurse Practitioner Family
DX: R91.1 Solitary pulmonary nodule (principal)

== ENCOUNTER → 2020-10-02 | Outpatient (CLI) | payer OTHER ==
[~2020-10-02] MED LIST changes: +HYDR12CA PO; +LIDOCAINE 1% MDV 20ML VIAL As Ordered ONE; +SODIUM BICARBONATE 8.4% INJ 50MEQ 50 ML VIAL As Ordered ONE; +VALS1TAB66 PO
--- NOTE | 2020-10-02 14:55 | REP ---
INDICATION: POST RIGHT LUNG BIOPSY, 1 VIEW, PA INSPIRATION. COMPARISON: Comparison is made with chest x-ray from September 10, [address] TECHNIQUE: PA chest x-ray inspiration. Post biopsy film. FINDINGS: There is post biopsy alveolar opacity in the right apex consistent with edema around the biopsy site. There is no evidence of pneumothorax or hemothorax. The there is some post thoracotomy volume loss in the left chest unchanged. There are clips in right upper quadrant the abdomen. IMPRESSION: No pneumothorax seen. <Electronically signed by Umesh Hart > 10/02/20 [id number]
[2020-10-02 15:45] VITALS: BP 106/63
--- NOTE | 2020-10-02 16:58 | REP ---
INDICATION: OTHER NON SPECIFICE ABN FINDINGS OF LUNG FIELD. COMPARISON: None. TECHNIQUE: The procedure is performed by Jazmine Ashraf [facility], under the direct supervision of Dr. Hart. The risks and benefits of the procedure were explained to the patient and informed consent was obtained both orally and written. Directly prior to the start of the procedure, a formal timeout was done in the exam room. The right upper lobe lung nodule was localized using CT guidance. Skin was prepped and draped in the usual sterile fashion. Ten ml of buffered lidocaine was used as a local anesthetic. FINDINGS: Using CT guidance a 19/20 gauge coaxial needle biopsy system was inserted and advanced into the nodule. Five core biopsy samples were obtained and sent to the lab. CT images obtained directly after the biopsy show no evidence of pneumothorax. After the appropriate amount of monitored convalescence the patient was discharged from the department. IMPRESSION: CT-guided right upper lobe lung nodule biopsy. <Electronically signed by Jazmine Ashraf > 10/02/20 1648 <Electronically signed by Umesh Hart > 10/02/20 0415
== END ==
LOC: M IRPRO 08:18
PROVIDERS: ATTEND Nurse Practitioner Family
DX: R91.8 Other nonspecific abnormal finding of lung field (principal)

== ENCOUNTER → 2020-10-14 | Outpatient (CLI) | payer OTHER ==
[~2020-10-14] MED LIST changes: -LIDOCAINE 1% MDV 20ML VIAL As Ordered ONE; -SODIUM BICARBONATE 8.4% INJ 50MEQ 50 ML VIAL As Ordered ONE
--- NOTE | 2020-10-14 09:13 | REP ---
INDICATION: SOLITARY PULMONARY NODULE COMPARISON: 08/28/2020, 04/28/2020 TECHNIQUE: Axial noncontrast images from the thoracic inlet to the upper abdomen with coronal and sagittal reformations. This CT examination was performed using the following dose reduction techniques: Automated exposure control, adjustment of mA and/or kv according to the patient's size, and use of iterative reconstruction technique. FINDINGS: Part solid nodule in the anterior right lung apex, triangular density along the posterior aspect of the right lung apex, and small nodule along the medial apical right lower lobe as well as mediastinal lymph node remains stable. No acute consolidation, new nodule or mass. No effusion. No pneumothorax. Tracheobronchial tree is patent. Mediastinum demonstrates normal stable thoracic aorta, pulmonary vasculature, and heart/pericardium. Surrounding musculoskeletal structures are intact. IMPRESSION: Stable findings unchanged compared with 08/28/2020 and 04/28/2020. No new acute process. <Electronically signed by Major Toledo > 10/14/20 0909
== END ==
LOC: M RAD 08:23
PROVIDERS: ATTEND Nurse Practitioner Family
DX: R91.8 Other nonspecific abnormal finding of lung field (principal)

== ENCOUNTER 2020-11-08 06:01 | Day surgery (SDC) | payer OTHER ==
[~2020-11-08] VITALS: Ht 157.5 cm; Wt 85.0 kg
[~2020-11-08 06:01] MED LIST changes: +ALBUTEROL SULFATE 2.5 MG/0.5 ML INH NEB SOLN INH ONE; +LIDOCAINE 4% INJ 5ML AMP INH ONE; +LR 1,000 ML IV ONE
[2020-11-08] MEDS ORDERED: LIDOCAINE 2% 100MG/5ML SDV (FOR ANES.) As Ordered ONE (07:00)
[2020-11-08] MEDS ORDERED: propofoL 200 MG/20 ML VIAL As Ordered ONE (07:00)
[2020-11-08] MEDS ORDERED: ONDANSETRON 4MG/2ML VIAL As Ordered ONE (07:00)
[2020-11-08] MEDS ORDERED: KETOROLAC 60MG 2ML VIAL As Ordered ONE (07:00)
[2020-11-08] MEDS ORDERED: SUGAMMADEX SODIUM 500 MG/5 ML VIAL (BRIDION) As Ordered ONE (07:00)
[2020-11-08] MEDS ORDERED: dexameTHASONE 4 MG/ML 1ML VIAL (J1100 PER 1MG) As Ordered ONE (07:00)
[2020-11-08] MEDS ORDERED: ROCURONIUM BROMIDE 50 MG/5 ML VIAL As Ordered ONE (07:00)
[2020-11-08] MEDS ORDERED: MIDAZOLAM INJ 2MG/2ML VIAL (J2250 PER 1MG) As Ordered ONE (07:01)
[2020-11-08] MEDS ORDERED: fentaNYL 100 MCG/2 ML INJECTION (J3010) As Ordered ONE (07:01)
[2020-11-08] MEDS ORDERED: THROMBIN SOLN 5,000 UNITS VIAL As Ordered ONE (07:08)
[2020-11-08] MEDS ORDERED: EPINEPHrine 1MG/10ML SYRINGE 1.5IN As Ordered ONE (07:09)
[2020-11-08] MEDS ORDERED: CETACAINE SPRAY 5GM As Ordered ONE (07:09)
[2020-11-08] MEDS ORDERED: LIDOCAINE 1% SDV 30ML VIAL As Ordered ONE (07:09)
--- NOTE | 2020-11-08 08:41 | RO ---
OPERATIVE NOTE DATE OF OPERATION: 11/08/2020 PREOPERATIVE DIAGNOSIS: Right upper lobe nodule in a patient with previous lung cancer. POSTOPERATIVE DIAGNOSIS: Right upper lobe nodule in a patient with previous lung cancer. PROCEDURE: Fiberoptic bronchoscopy with robotic assistance via the [employer] platform, as well as fluoroscopic guidance. SURGEON: Karthik Rondon M.D. STARCH TREATING ASSISTANT: Racheal Hopper MD ANESTHESIA: General. INFORMED CONSENT: Obtained prior to the procedure. OPERATIVE FINDINGS: 1. Surgical absence of the left lower lobe. 2. Mild changes of bronchitis. DESCRIPTION OF PROCEDURE: After the patient is identified and above anesthesia given, the fiberoptic bronchoscope was passed via the existing endotracheal tube. Exam of the right and left lung were performed. Surgical absence of the left lower lobe was again noted. Stump was in good position. No focal endobronchial mucosal abnormalities identified. Only minimal secretions. Standard scope was then withdrawn and the [employer] platform was then deployed. A good pathway was able to be followed. The scope was then parked in the area of the lesion in question. Using a radial ultrasound probe, the area was confirmed and marked on the fluoroscopic screen. Multiple biopsies were taken of the area. Good cellular specimens were obtained. The area was then lavaged. Good return. No immediate bleeding was encountered. When adequate hemostasis was assured, the [employer] was then retracted. Reexamination with the standard scope was then performed and again, no bleeding encountered. The scope was then withdrawn and the procedure terminated. Fluoroscopic examination immediately postprocedure showed no evidence of pneumothorax. Repeat chest x-ray is to be done in one hour. Care was then turned over to anesthesia for reversal of anesthetic agents. No immediate complications with the procedure were identified.
[2020-11-08] MEDS ORDERED: ONDANSETRON 4MG/2ML VIAL IV PRN (08:50)
[2020-11-08] MEDS ORDERED: HYDROMORPHONE HCL 0.5 MG/ 0.5 ML SYRINGE (J1170 PER 1) IV PRN (08:50)
[2020-11-08] MEDS ORDERED: LR 1,000 ML IV SCH (08:50)
[2020-11-08] MEDS ORDERED: oxyCODONE 5MG TAB PO PRN (08:50)
[2020-11-08] MEDS ORDERED: fentaNYL 100 MCG/2 ML INJECTION (J3010) IV PRN (08:50)
--- NOTE | 2020-11-08 09:09 | REP ---
INDICATION: RIGHT UPPER LOBE ABNORMALITY. COMPARISON: Comparison chest CT study October 14, 2020.. TECHNIQUE: Twenty images. 3 minutes 18 seconds of fluoroscopy time is reported. FINDINGS: A sequence of 20 last image hold fluoroscopically obtained spot radiographs of the right chest document bronchoscopic position and manipulation. IMPRESSION: Procedural imaging. <Electronically signed by Umesh Hart > 11/08/20 0906
--- NOTE | 2020-11-08 09:31 | REP ---
INDICATION: POST OP IN PACU/BRONCHOSCOPY COMPARISON: 10/02/2020 TECHNIQUE: Portable AP view of the chest FINDINGS: The mediastinum and cardiac silhouette are stable and within normal limits for portable technique. The lung raza are clear without acute consolidation, effusion, or pneumothorax. Skeletal structures are intact. IMPRESSION: No acute cardiopulmonary process appreciated. <Electronically signed by Major Toledo > 11/08/20 0928
[2020-11-08 10:12] VITALS: BP 130/58
== END 2020-11-08 10:05 | disposition home or self-care (01) ==
LOC: M SDC 06:01
PROVIDERS: ATTEND Internal Medicine Pulmonary Disease
DX: R91.8 Other nonspecific abnormal finding of lung field (principal); Z85.118 Personal history of other malignant neoplasm of bronchus and lung; Z90.2 Acquired absence of lung [part of]; I10 Essential (primary) hypertension; E11.9 Type 2 diabetes mellitus without complications; E78.5 Hyperlipidemia, unspecified; R06.83 Snoring; Z87.891 Personal history of nicotine dependence; Z79.899 Other long term (current) drug therapy; Z79.84 Long term (current) use of oral hypoglycemic drugs; Z77.22 Contact with and (suspected) exposure to environmental tobacco smoke (acute) (chronic)
CPT/HCPCS: 31624; 31625; 31652; 31654; 71045; 76000; 88108; 88305; 88313; J1100; J1885; J2250; J2405; J3010; S2900

== ENCOUNTER → 2020-12-21 | Outpatient (CLI) | payer OTHER ==
[~2020-12-21] MED LIST changes: -ALBUTEROL SULFATE 2.5 MG/0.5 ML INH NEB SOLN INH ONE; -LIDOCAINE 4% INJ 5ML AMP INH ONE; -LR 1,000 ML IV ONE
[2020-12-21 13:45] LABS: APPEARANCE, URINE CLEAR (CLEAR); BACTERIA, URINE AUTO NEGATIVE (NEGATIVE); BILIRUBIN, URINE AUTO NEGATIVE (NEGATIVE); BLOOD, URINE BLOOD NEGATIVE (NEGATIVE); COLOR, URINE STRAW (YELLOW); GLUCOSE, URINE (UA) AUTO NEGATIVE (NEGATIVE); KETONE, URINE AUTO NEGATIVE (NEGATIVE); LEUKOCYTE ESTERASE, URINE AUTO NEGATIVE (NEGATIVE); MUCUS, URINE SMALL (NEGATIVE); NITRITE, URINE AUTO NEGATIVE (NEGATIVE); PROTEIN, URINE AUTO NEGATIVE (NEGATIVE); RBC, URINE AUTO 1 /HPF (0-3); SPECIFIC GRAVITY URINE AUTO 1.008 (1.002-1.035); SQUAMOUS EPITHELIAL CELL UR AU 1 /HPF (0-6); UROBILINOGEN, URINE AUTO 0.2 mg/dL (0.0-2.0); WBC, URINE AUTO 0 /HPF (0-3)
[2020-12-21 13:46] LABS: HEMATOCRIT 41.1 % (36.0-47.0); MEAN CORPUSCULAR HEMOGLOBIN 31.9 pg (27.0-33.0); MEAN CORPUSCULAR HGB CONC 34.1 g/dl (32.0-36.5); MEAN CORPUSCULAR VOLUME 93.6 fl (80.0-96.0); PLATELET COUNT, AUTOMATED 337 10^3/uL (150-450); RED BLOOD COUNT 4.39 10^6/uL (4.00-5.40); WHITE BLOOD COUNT 10.5 10^3/uL (4.0-10.0)
[2020-12-21 13:58] LABS: ABG BASE EXCESS 0.9 (-2.0-2.0); ABG HCO3 24.2 MEQ/L (22.0-26.0); ABG O2 SATURATION 97.3 % (95.0-99.0); ABG PARTIAL PRESSURE CO2 34.7 mmHg (35.0-45.0); ABG STANDARD HCO3 25.2 MEQ/L (22.0-26.0); ABG TOTAL CO2 25.2 MEQ/L (23.0-31.0); ABG pH (ARTERIAL) 7.461 UNITS (7.350-7.450)
[2020-12-21 14:07] LABS: INR 0.91; PROTHROMBIN TIME 12.6 SECONDS (12.7-14.5)
--- NOTE | 2020-12-21 14:07 | ECGEPIP ---
[facility] Test Date: 2020-12-21 Pat Name: CARLOS ONEAL Department: Room: - Gender: Female Interlibrary Loan Specialist: FELIBERTO : 1960 Requested By: Ruy Guerrero Order Number: [id number] Reading MD: Jesus Delgado Measurements Intervals [place] Rate: 73 P: 43 [place]: 176 QRS: 23 QRSD: 76 T: 15 QT: 408 QTc: 449 Interpretive Statements somatic artifact Normal sinus rhythm Somewhat low voltages with slow precordial R wave progression; body habitus v versus pulmonary disease Less ST/T wave abnormality compared with 09/09/17 Electronically Signed on 12-21-2020 14:07:11 EDT by Jesus Delgado
[2020-12-21 14:08] LABS: BLOOD UREA NITROGEN 15 MG/DL (7-18); CALCIUM LEVEL 10.1 MG/DL (8.8-10.2); CARBON DIOXIDE LEVEL 28 MEQ/L (21-32); CHLORIDE LEVEL 101 MEQ/L (98-107); GLOMERULAR FILTRATION RATE > 60.0 (>45); GLUCOSE, FASTING 97 MG/DL (70-100); PARTIAL THROMBOPLASTIN TIME 29.1 SECONDS (25.9-37.0); POTASSIUM SERUM 3.8 MEQ/L (3.5-5.1); SODIUM LEVEL 136 MEQ/L (136-145)
--- NOTE | 2020-12-21 15:22 | REP ---
INDICATION: LUNG LESIONS PREOP 23. COMPARISON: CT 10/14/2020 TECHNIQUE: Two views FINDINGS: Small nodule right apex. The lungs are otherwise clear. Heart is not enlarged. There is no failure. IMPRESSION: Small nodule right lung apex. No other abnormality is demonstrated. <Electronically signed by Cliff Sidhu > 12/21/20 [id number]
== END ==
LOC: M ADMPAT 12:57
PROVIDERS: ATTEND Thoracic Surgery (Cardiothoracic Vascular Surgery)
DX: Z01.818 Encounter for other preprocedural examination (principal); R91.1 Solitary pulmonary nodule

== ENCOUNTER → 2020-12-22 | Outpatient (CLI) | payer OTHER | LOC: M LABSMTC 11:57 | PROVIDERS: ATTEND Anesthesiology | DX: Z01.812 Encounter for preprocedural laboratory examination (principal); Z20.822 Contact with and (suspected) exposure to COVID-19 ==

== ENCOUNTER 2020-12-27 07:01 | Inpatient (IN) | payer OTHER ==
[2020-12-27] VITALS (13 sets, daily range): BP systolic 70–138; BP diastolic 46–67
[~2020-12-27] VITALS: Ht 157.5 cm; Wt 85.3 kg
[~2020-12-27 07:01] MED LIST changes: +LR 1,000 ML IV ONE
[2020-12-27] MEDS ORDERED: THROMBIN SOLN 5,000 UNITS VIAL As Ordered ONE (07:54)
[2020-12-27] MEDS ORDERED: LIDOCAINE 1% SDV 30ML VIAL As Ordered ONE (07:55)
[2020-12-27] MEDS ORDERED: EPINEPHrine 1MG/10ML SYRINGE 1.5IN As Ordered ONE (07:55)
[2020-12-27] MEDS ORDERED: LIDOCAINE 1% MDV 20ML VIAL XX ONE (07:55)
[2020-12-27] MEDS ORDERED: ceFAZolin SOD 2 GM in IV 1 EA IV ONE (08:00)
[2020-12-27] MEDS ORDERED: MUPIROCIN 2% OINT 22 GM TUBE TOP ONE (08:00)
[2020-12-27] MEDS: fentaNYL 100 MCG/2 ML INJECTION (J3010) IV PRN ×3 (08:08→16:55)
[2020-12-27] MEDS: MIDAZOLAM INJ 2MG/2ML VIAL (J2250 PER 1MG) IV PRN ×2 (08:08→08:27)
[2020-12-27] MEDS ORDERED: propofoL 200 MG/20 ML VIAL As Ordered ONE (08:21)
[2020-12-27] MEDS ORDERED: CETACAINE SPRAY 5GM As Ordered ONE ×2 (08:21→08:59)
[2020-12-27] MEDS ORDERED: SUGAMMADEX SODIUM 500 MG/5 ML VIAL (BRIDION) As Ordered ONE (08:21)
[2020-12-27] MEDS ORDERED: ONDANSETRON 4MG/2ML VIAL As Ordered ONE (08:21)
[2020-12-27] MEDS ORDERED: ROCURONIUM BROMIDE 50 MG/5 ML VIAL As Ordered ONE ×2 (08:21→10:04)
[2020-12-27] MEDS ORDERED: LIDOCAINE 2% 100MG/5ML SDV (FOR ANES.) As Ordered ONE (08:21)
[2020-12-27] MEDS ORDERED: fentaNYL 100 MCG/2 ML INJECTION (J3010) As Ordered ONE (08:21)
[2020-12-27] MEDS ORDERED: BUPIVACAINE HCL 0.5% 10ML VIAL As Ordered ONE (08:21)
[2020-12-27] MEDS ORDERED: ACETAMINOPHEN 1000MG 100ML IV BTL (OFIRMEV) (J0131 PER 10MG) As Ordered ONE (08:21)
[2020-12-27] MEDS ORDERED: dexameTHASONE 4 MG/ML 1ML VIAL (J1100 PER 1MG) As Ordered ONE (08:21)
[2020-12-27] MEDS ORDERED: MIDAZOLAM INJ 2MG/2ML VIAL (J2250 PER 1MG) As Ordered ONE (08:22)
[2020-12-27] MEDS ORDERED: BUPIVACAINE LIPOSOME/PF 1.3% 20ML VIAL (13.3MG/ML)(EXPAREL)(C9290 PER1MG) As Ordered ONE (08:22)
[2020-12-27] MEDS ORDERED: HYDROmorphone HCL 2 MG/ML 1ML VIAL (J1170) As Ordered ONE (08:24)
[2020-12-27] MEDS ORDERED: PHENYLEPHRINE 10MG/ML 1ML VIAL (J2370 PER 1) As Ordered ONE (08:24)
[2020-12-27] MEDS ORDERED: LIDOCAINE 2% JELLY 5ML TUBE As Ordered ONE (08:55)
[2020-12-27] MEDS ORDERED: METHYLENE BLUE 0.5% (5MG/ML) 10 ML AMP (PROVAYBLUE) As Ordered ONE (08:59)
[2020-12-27] MEDS ORDERED: METOCLOPRAMIDE INJ 10MG/2ML VIAL (J2765 PER 1) IV PRN (09:00)
[2020-12-27] MEDS ORDERED: NALOXONE INJ 0.4MG/1ML VIAL (J2310 PER 1MG) IV PRN (09:00)
[2020-12-27] MEDS ORDERED: diphenhydrAMINE 50MG/ML VIAL (J1200) IV PRN (09:00)
[2020-12-27] MEDS ORDERED: EPIDURAL/PCA KEYS XX PRN (09:00)
[2020-12-27] MEDS ORDERED: WALLBOXKEY XX PRN (09:00)
[2020-12-27] MEDS ORDERED: PHENYLephrine 500MCG 5ML (100MCG/ML) SYRINGE As Ordered ONE (10:04)
[2020-12-27] MEDS ORDERED: ceFAZolin 2 GM/D5W 50 ML IV BAG (J0690 PER 500MG) As Ordered ONE (11:35)
--- NOTE | 2020-12-27 12:04 | RO ---
OPERATIVE NOTE DATE OF OPERATION: 12/27/2020 TIME: 11:12 PREOPERATIVE DIAGNOSIS: Right upper lobe nodules, abnormal chest CT. POSTOPERATIVE DIAGNOSIS: Right upper lobe nodules, abnormal chest CT. FINDINGS: Normal airway anastomosis of the left lower lobe. No endobronchial lesions. PROCEDURE: Bronchoscopy with [place] navigation and Methylene Blue administration to two separate lesions. SURGEONS: 1. Kenji Guan DO, FCCP 2. Karthik Rondon MD PARKING ASSISTANT: No other assistants. ANESTHESIA: General. SPECIMENS OBTAINED: BAL left upper lobe. ESTIMATED BLOOD LOSS: Less than 5 mL, none replaced. DRAINS: No drains. COMPLICATIONS: None. DESCRIPTION OF PROCEDURE: After informed consent was reviewed by the patient and Dr. Rondon, the patient brought back to the OR. The plan was to attempt to place Methylene Blue marking for removal of lesions. The patient was prepped and placed under anesthesia. The case was then handed over to me. A timeout was performed with two patient identifiers, identifying correct site and correct procedure and correlating name and date of with [email or web address] CT software. After this was performed, Cetacaine spray was used to anesthetiz the airway. The 1T190 bronchoscope was inserted. Trachea was midline. Lamar was sharp. Right and left stem bronchi were normal. RB1-10 was normal without endobronchial lesions. There was minimal plaquing of the left upper lobe and minimal amounts of mucus. A BAL was obtained of the left upper lobe. Otherwise no endobronchial lesions in LB1-5. The lower lobe had a clean anastomosis without evidence of rupture or infection. The bronchoscope was then removed. The robotic bronchoscopy was then set up. Automatic registration was performed. The anterior lesion target #2 in the right upper lobe, an apical anterior lesion in the right upper lobe was difficult to navigate to, was within 2 cm confirmed on fluoro, placed needle and Methylene Blue. This was then removed. The second target was then navigated to, both difficult to get to in the posterior apical segment. Methylene Blue was then administered into this area. After adequate dye placement, fluoro sweep was performed without evidence of pneumothorax. Case was then handed over to anesthesia to prep for resection. DANIA
[2020-12-27] MEDS ORDERED: GLUCOSE 4GM CHEW TABLET PO PRN ×2 (13:40→19:55)
[2020-12-27] MEDS ORDERED: PERCOCET 5MG/325MG TAB PO PRN ×2 (13:40)
[2020-12-27] MEDS ORDERED: ONDANSETRON 4MG/2ML VIAL IV PRN ×2 (13:40→14:20)
[2020-12-27] MEDS ORDERED: LEVALBUTEROL 1.25 MG/0.5 ML CONCENTRATE NEB NEB PRN (13:40)
[2020-12-27] MEDS ORDERED: DEXTROSE 50% 50 ML SYRINGE IV PRN ×2 (13:40→19:55)
[2020-12-27] MEDS ORDERED: NORCO, ANEXSIA 5/325MG TABLET (HYDROcodone/ACETAMINOPHEN) PO PRN (13:40)
[2020-12-27] MEDS ORDERED: GLUCAGON INJ 1MG VIAL SC PRN ×2 (13:40→19:55)
[2020-12-27] MEDS ORDERED: BISACODYL 10 MG SUPP PR PRN (13:40)
[2020-12-27] MEDS ORDERED: LIDOCAINE 2% W/EPINEPHRINE 20ML VIAL **PRES FREE As Ordered ONE (13:43)
[2020-12-27] MEDS ORDERED: SODIUM BICARBONATE 8.4% INJ 50 ML SYRINGE As Ordered ONE (13:43)
[2020-12-27] MEDS ORDERED: LR 1,000 ML IV SCH (14:20)
[2020-12-27] MEDS ORDERED: fentaNYL 100 MCG/2 ML INJECTION (J3010) IV PRN (14:20)
[2020-12-27] MEDS ORDERED: oxyCODONE 5MG TAB PO PRN (14:20)
[2020-12-27 14:21] LABS: ABG O2 SATURATION 99.2 % (95.0-99.0); ABG PARTIAL PRESSURE O2 226.7 mmHg (75.0-100.0); ABG STANDARD HCO3 22.8 MEQ/L (22.0-26.0); ABG TOTAL CO2 25.5 MEQ/L (23.0-31.0); ABG pH (ARTERIAL) 7.336 UNITS (7.350-7.450)
[2020-12-27 14:24] LABS: BASO % 0.2 % (0.0-1.0); EOS % 0.1 % (0.0-3.0); HEMATOCRIT 37.7 % (36.0-47.0); HEMOGLOBIN 12.7 g/dl (12.0-15.5); LYMPH # 1.3 10^3/uL (1.5-5.0); LYMPH % 7.1 % (24.0-44.0); MEAN CORPUSCULAR HEMOGLOBIN 31.5 pg (27.0-33.0); MEAN CORPUSCULAR HGB CONC 33.7 g/dl (32.0-36.5); MEAN CORPUSCULAR VOLUME 93.5 fl (80.0-96.0); MONO # 0.3 10^3/uL (0.0-0.8); MONO % 1.5 % (2.0-8.0); NEUTROPHILS # 15.9 10^3/uL (1.5-8.5); NEUTROPHILS % 90.3 % (36.0-66.0); PLATELET COUNT, AUTOMATED 360 10^3/uL (150-450); RED BLOOD COUNT 4.03 10^6/uL (4.00-5.40); WHITE BLOOD COUNT 17.7 10^3/uL (4.0-10.0)
[2020-12-27] MEDS ORDERED: PHENYLephrine 500MCG 5ML (100MCG/ML) SYRINGE IV PRN (14:25)
[2020-12-27 14:45] LABS: CALCIUM LEVEL 8.7 MG/DL (8.8-10.2); CREATININE FOR GFR 1.02 MG/DL (0.55-1.30); GLOMERULAR FILTRATION RATE 58.8 (>45); POTASSIUM SERUM 4.4 MEQ/L (3.5-5.1)
[2020-12-27] MEDS ORDERED: PHENYLEPHRINE HCL INJ 10 MG in D5W 99 ML IV SCH ×3 (14:45→16:00)
[2020-12-27] MEDS: KETOROLAC 30 MG/ML 1ML VIAL IV SCH ×2 (14:49→21:01)
[2020-12-27] MEDS ORDERED: PHENYLEPHRINE 10MG/ML 1ML VIAL (J2370 PER 1) IV SCH (15:30)
--- NOTE | 2020-12-27 15:36 | RO ---
OPERATIVE NOTE DATE OF OPERATION: 12/27/2020 PREOPERATIVE DIAGNOSIS: Right upper lobe lung lesions. POSTOPERATIVE DIAGNOSIS: Adenocarcinoma. PROCEDURE: Video-assisted thoracoscopic surgery (VATS) wedge resection followed by thoracotomy and wedge resection. SURGEON: Dr. Ruy Bernal FINDINGS: The lesions had previously been marked with robotic bronchoscopy with methylene blue. I could clearly see the markings. After doing the first wedge resection, when cutting the specimen I could not see a discrete tumor. The posterior tumor was too close to the great vessels for me to safely wedge it out with VATS techniques, and therefore a posterior thoracotomy incision was undertaken. Both specimens returned adenocarcinoma. DESCRIPTION OF PROCEDURE: Under satisfactory general anesthesia and double-lumen endotracheal intubation, patient was prepped and draped in the usual sterile fashion after being placed in the left laterale decubitus position. Three VATS incisions were made. The markings were clearly seen. The anterior tumor alva was seized with a grasper, and a wedge was taken out tangentially over the area of the marking. Upon retrieving it in an Endo Catch bag, I cut the specimen. I could not see a definitive tumor. It was therefore sent to pathology for frozen section. It was eventually reported back adenocarcinoma. A second lesion in the posterior segment of the upper lobe, although I could see the alva easily, I could not grasp the tumor, as the alva was very close to the azygous veins. I had a sinking feeling that the alva was not properly placed, as the marking did not correspond anatomically to the CT scan. Therefore, a posterior lateral thoracotomy was undertaken. The latissimus dorsi was divided, and the chest was entered through the 6th intercostal space. Lesion was seen about 1 cm from the inferior edge of the methylene blue marker dye. and then wedged out with a 4.8 Endo SHANT stapler. By the time I was turning my attention to the anterior segment and segmental lesion, the report was received from pathology that was indeed adenocarcinoma. Two chest tubes were placed, both #24 curved and straight, posteriorly and anteriorly, respectively. A 5-level rib block was undertaken. After achieving adequate hemostasis, the ribs were then reapproximated with #1 Prolene suture in a [id number] fashion. The latissimus dorsi was reapproximated with the use of running 0 Vicryl suture, subcutaneous tissue by use of 3-0 Vicryl suture, and the skin by use of 3-0 Monocryl subcuticular suture. The patient tolerated the procedure well and left the operating room in satisfactory condition to the recovery room. DANIA
--- NOTE | 2020-12-27 16:35 | REP ---
INDICATION: s/p wedge resections RUL. COMPARISON: 12/21/2020. TECHNIQUE: Single portable AP view of the chest was performed. FINDINGS: There are 2 right chest tubes. There appears to be a tiny right apical pneumothorax. Very mild parenchymal opacities seen superiorly on the right. The heart and mediastinum are not significantly changed. Metallic clips are seen in the upper abdomen. IMPRESSION: Postsurgical findings on the right. <Electronically signed by Dominic Rodriguez > 12/27/20 [id number]
[2020-12-27] MEDS: KCL 20MEQ IN D5/NS 1000ML 1,000 ML IV SCH (16:53)
[2020-12-27] MEDS: HumaLOG INSULIN (NovoLOG) PER UNIT SC SCH ×3 (16:54→20:50)
[2020-12-27] MEDS: FENTANYL/BUPIVACAINE/NACL BAG 250 ML EPIDURAL SCH (16:54)
[2020-12-27] MEDS ORDERED: HumaLOG INSULIN (NovoLOG) PER UNIT SC SCH ×2 (17:30→21:00)
[2020-12-27] MEDS: hydroCHLOROthiazide 12.5 MG CAPSULE PO SCH (17:32)
[2020-12-27] MEDS: ceFAZolin SOD 1 GM in D5W MINI-BAG PLUS 50 ML IV SCH (17:51)
[2020-12-27] MEDS: LEVALBUTEROL 1.25 MG/0.5 ML CONCENTRATE NEB NEB SCH (19:44)
[2020-12-27] MEDS ORDERED: metFORMIN XR 500MG TAB *GLUCOPHAGE XR PO SCH (21:00)
[2020-12-27] MEDS: DOCUSATE SODIUM 100MG CAPSULE PO SCH (21:01)
[2020-12-27] MEDS: HEPARIN SOD (PORCINE) 5000UNITS/ML 1ML VIAL/SYRINGE SC SCH (21:02)
[2020-12-28] VITALS (8 sets, daily range): BP systolic 99–136; BP diastolic 53–62
[2020-12-28] MEDS: ceFAZolin SOD 1 GM in D5W MINI-BAG PLUS 50 ML IV SCH ×3 (00:26→17:18)
[2020-12-28] MEDS: LEVALBUTEROL 1.25 MG/0.5 ML CONCENTRATE NEB NEB SCH ×4 (00:35→19:28)
[2020-12-28] MEDS: KCL 20MEQ IN D5/NS 1000ML 1,000 ML IV SCH (03:17)
[2020-12-28] MEDS: KETOROLAC 30 MG/ML 1ML VIAL IV SCH ×4 (03:18→21:07)
[2020-12-28 04:27] LABS: ABG BASE EXCESS -0.3 (-2.0-2.0); ABG HCO3 24.7 MEQ/L (22.0-26.0); ABG O2 SATURATION 97.4 % (95.0-99.0); ABG PARTIAL PRESSURE CO2 41.8 mmHg (35.0-45.0); ABG PARTIAL PRESSURE O2 103.7 mmHg (75.0-100.0); ABG STANDARD HCO3 24.2 MEQ/L (22.0-26.0); ABG pH (ARTERIAL) 7.389 UNITS (7.350-7.450)
[2020-12-28 04:31] LABS: BASO % 0.1 % (0.0-1.0); HEMATOCRIT 32.6 % (36.0-47.0); HEMOGLOBIN 10.9 g/dl (12.0-15.5); LYMPH # 1.4 10^3/uL (1.5-5.0); LYMPH % 10.3 % (24.0-44.0); MEAN CORPUSCULAR HEMOGLOBIN 31.7 pg (27.0-33.0); MEAN CORPUSCULAR HGB CONC 33.4 g/dl (32.0-36.5); MEAN CORPUSCULAR VOLUME 94.8 fl (80.0-96.0); MONO # 1.3 10^3/uL (0.0-0.8); MONO % 9.2 % (2.0-8.0); RED BLOOD COUNT 3.44 10^6/uL (4.00-5.40); WHITE BLOOD COUNT 13.8 10^3/uL (4.0-10.0)
[2020-12-28 04:44] LABS: PLATELET COUNT, AUTOMATED 256 10^3/uL (150-450)
[2020-12-28 04:51] LABS: BLOOD UREA NITROGEN 19 MG/DL (7-18); CALCIUM LEVEL 8.3 MG/DL (8.8-10.2); CARBON DIOXIDE LEVEL 27 MEQ/L (21-32); CHLORIDE LEVEL 111 MEQ/L (98-107); GLOMERULAR FILTRATION RATE > 60.0 (>45); GLUCOSE, FASTING 122 MG/DL (70-100); POTASSIUM SERUM 4.3 MEQ/L (3.5-5.1); SODIUM LEVEL 141 MEQ/L (136-145)
[2020-12-28] MEDS: HumaLOG INSULIN (NovoLOG) PER UNIT SC SCH ×4 (07:30→20:03)
[2020-12-28] MEDS ORDERED: HumaLOG INSULIN (NovoLOG) PER UNIT SC SCH (07:30)
--- NOTE | 2020-12-28 08:38 | REP ---
INDICATION: s/p wedge resections RUL COMPARISON: 12/27/2020 TECHNIQUE: PA and lateral. FINDINGS: Two right-sided chest tubes are in stable position and a miniscule residual right apical pneumothorax is identified. Opacities suggesting atelectasis extending from the hilum and suprahilar region appear improved. No obvious effusion. Mediastinum and cardiac silhouette normal. Left hemithorax is relatively clear. Skeletal structures are intact. Prior cholecystectomy. IMPRESSION: Findings suggest improved postsurgical changes to the right hemithorax. <Electronically signed by Major Toledo > 12/28/20 0807
[2020-12-28] MEDS: atenoloL 25 MG TAB PO SCH (09:00)
[2020-12-28] MEDS: MOM 30ML SUSPENSION UDC PO SCH (09:10)
[2020-12-28] MEDS: hydroCHLOROthiazide 12.5 MG CAPSULE PO SCH (09:11)
[2020-12-28] MEDS: PANTOPRAZOLE 40MG TAB (PROTONIX) PO SCH (09:11)
[2020-12-28] MEDS: metFORMIN XR 500MG TAB *GLUCOPHAGE XR PO SCH ×2 (09:11→21:08)
[2020-12-28] MEDS: DOCUSATE SODIUM 100MG CAPSULE PO SCH ×2 (09:11→21:07)
[2020-12-28] MEDS: PRAVASTATIN 10 MG TAB PO SCH (09:12)
[2020-12-28] MEDS: HEPARIN SOD (PORCINE) 5000UNITS/ML 1ML VIAL/SYRINGE SC SCH ×2 (09:12→21:07)
[2020-12-28] MEDS: ONDANSETRON 4MG/2ML VIAL IV PRN ×3 (09:15→21:07)
--- NOTE | 2020-12-28 13:37 | IPN ---
PROGRESS NOTE DATE: 12/28/2020 This is now the first postoperative day for Mrs. Vargas. She has had a stable night of surgery. Her pain is being well controlled at the incision site; however, she has some right shoulder pain, which is being controlled with both Toradol and a heating pad. She has a slight cough. There is no air leak. Her vital signs show a maximum temperature (T-max) of 99.2 with a heart rate that ranges between 67-80 in a sinus rhythm, respiratory rate of 18-20 without the use of accessory muscles, who is 97%-98% saturated on 2 liters nasal cannula. Her blood pressure is ranging between 99/58 to 114/59. Her intake and output for the past 24 hours have been recorded as 2495 in and 880 out for a positivity of 1600 mL. She has put out 165 mL from the chest tube. There is no air leak. Weight today is recorded as 90.6 kg compared to 84 kg preoperatively. PHYSICAL EXAMINATION: Shows equal breath sounds on either side with some rhonchi on the right side. Percussion note is full to the diaphragm. Cardiac exam is without murmurs, clicks, gallops, or rubs. I cannot feel her point of maximal impulse (PMI). S1 and S2 are normal. Abdomen is soft and nontender. Bowel sounds are positive. There is no hepatomegaly. No costovertebral angle (CVA) tenderness. She has not had flatus. Extremities show no pretibial edema, no calf tenderness, no differential swelling of the upper extremities. Skin is warm, dry, and perfused without cyanosis or mottling, including that of the nailbeds and knees. Neck is supple. There is no jugular venous distention. No subcutaneous emphysema. Trachea is midline. Mouth shows the mucous membranes to be pink and moist. Lips and commissures without lesions. No thrush. Eyes show her pupils to be equal and reactive. Extraocular motion intact. Sclerae anicteric. Neurologic shows II-XII intact. Normal gross motor, gross sensation intact. Gait is not tested. Psychiatric shows her to be awake, alert, and oriented times three with appropriate mood and affect and conversational. Her white count today is 13.8 with a hemoglobin and hematocrit of 10.9 and 32.6, down from 12.7 and 37.7 yesterday secondary to hemodilution. Platelet count is 256 and stable. Differential shows 80% neutrophils, 10% lymphocytes, 9% monocytes. There are no immature forms or toxic granulations. Her electrolytes are essentially normal with a BUN and creatinine of 19 and 0.8, glucose of 122, and a calcium of 8.3. Her chest x-ray shows her lung fully expanded to the chest wall. Costophrenic angles are sharp. I see no infiltrates. I have gone over the frozen section pathology with the pathologist. She has two separate lesions. Both are adenocarcinoma. One may be more well differentiated than the other. Permanent sections are pending. Molecular testing is pending. IMPRESSION: 1. Postoperative day #1 status post multiple wedge resections, right upper lobe. 2. Adenocarcinoma in two separate lesions. 3. 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 4. Diabetes. 5. Hypercholesterolemia. 6. Hypertension. PLAN AND DISCUSSION: I will continue her chest tubes on suction today. I have informed the patient of the frozen section findings and operative findings yesterday. She will definitively need adjuvant chemotherapy. We will await molecular testing and final characterization of both tumors. I will transfer her to the progressive care unit (PCU).
[2020-12-28] MEDS: ACETAMINOPHEN TAB 650MG DOSE (2X325MG) PO PRN (17:18)
[2020-12-28] MEDS: FENTANYL/BUPIVACAINE/NACL BAG 250 ML EPIDURAL SCH (17:23)
[2020-12-29] VITALS: BP 138/65
[2020-12-29] MEDS: ceFAZolin SOD 1 GM in D5W MINI-BAG PLUS 50 ML IV SCH ×2 (00:31→09:45)
[2020-12-29] MEDS: LEVALBUTEROL 1.25 MG/0.5 ML CONCENTRATE NEB NEB SCH ×4 (00:56→19:39)
[2020-12-29] MEDS: ONDANSETRON 4MG/2ML VIAL IV PRN ×3 (03:28→17:21)
[2020-12-29 04:00] VITALS: BP 134/62
[2020-12-29] MEDS: KETOROLAC 30 MG/ML 1ML VIAL IV SCH ×4 (04:25→21:18)
[2020-12-29 04:59] LABS: BASO % 0.3 % (0.0-1.0); EOS % 0.1 % (0.0-3.0); HEMATOCRIT 33.9 % (36.0-47.0); HEMOGLOBIN 11.1 g/dl (12.0-15.5); LYMPH # 1.1 10^3/uL (1.5-5.0); MEAN CORPUSCULAR HEMOGLOBIN 31.5 pg (27.0-33.0); MEAN CORPUSCULAR HGB CONC 32.7 g/dl (32.0-36.5); MEAN CORPUSCULAR VOLUME 96.3 fl (80.0-96.0); MONO # 1.3 10^3/uL (0.0-0.8); MONO % 8.5 % (2.0-8.0); NEUTROPHILS # 12.8 10^3/uL (1.5-8.5); NEUTROPHILS % 83.6 % (36.0-66.0); PLATELET COUNT, AUTOMATED 220 10^3/uL (150-450); RED BLOOD COUNT 3.52 10^6/uL (4.00-5.40); WHITE BLOOD COUNT 15.3 10^3/uL (4.0-10.0)
[2020-12-29 05:21] LABS: BLOOD UREA NITROGEN 18 MG/DL (7-18); CALCIUM LEVEL 8.6 MG/DL (8.8-10.2); CARBON DIOXIDE LEVEL 28 MEQ/L (21-32); CHLORIDE LEVEL 107 MEQ/L (98-107); CREATININE FOR GFR 0.69 MG/DL (0.55-1.30); GLOMERULAR FILTRATION RATE > 60.0 (>45); GLUCOSE, FASTING 119 MG/DL (70-100); POTASSIUM SERUM 4.9 MEQ/L (3.5-5.1); SODIUM LEVEL 138 MEQ/L (136-145)
[2020-12-29] MEDS: HumaLOG INSULIN (NovoLOG) PER UNIT SC SCH ×4 (07:30→21:00)
[2020-12-29 07:54] VITALS: BP 117/58
--- NOTE | 2020-12-29 09:09 | REP ---
INDICATION: s/p wedge resections RUL. COMPARISON: Yesterday TECHNIQUE: PA and lateral FINDINGS: The cardiomediastinal silhouette lung raza are unchanged. No acute patchy parenchymal opacities or pleural effusions have developed. The 2 right-sided thoracotomy tubes are unchanged. Right upper lobe postop changes status quo. The tiny right apical pneumothorax seen previously has resolved. IMPRESSION: There is no acute cardiopulmonary disease. Findings as described above. <Electronically signed by Ryan Tucker > 12/29/20 [id number]
[2020-12-29] MEDS: MOM 30ML SUSPENSION UDC PO SCH (09:43)
[2020-12-29] MEDS: HEPARIN SOD (PORCINE) 5000UNITS/ML 1ML VIAL/SYRINGE SC SCH ×2 (09:44→21:19)
[2020-12-29] MEDS: metFORMIN XR 500MG TAB *GLUCOPHAGE XR PO SCH ×2 (09:45→21:18)
[2020-12-29] MEDS: atenoloL 25 MG TAB PO SCH (09:46)
[2020-12-29] MEDS: hydroCHLOROthiazide 12.5 MG CAPSULE PO SCH (09:46)
[2020-12-29] MEDS: PANTOPRAZOLE 40MG TAB (PROTONIX) PO SCH (09:46)
[2020-12-29] MEDS: PRAVASTATIN 10 MG TAB PO SCH (09:47)
[2020-12-29] MEDS: DOCUSATE SODIUM 100MG CAPSULE PO SCH ×2 (09:47→21:18)
[2020-12-29] MEDS ORDERED: FUROSEMIDE 40MG/4ML VIAL (J1940) IV ONE (10:35)
[2020-12-29 13:08] VITALS: BP 117/56
[2020-12-29] MEDS: ACETAMINOPHEN TAB 650MG DOSE (2X325MG) PO PRN (13:23)
[2020-12-29] MEDS: FENTANYL/BUPIVACAINE/NACL BAG 250 ML EPIDURAL SCH (17:54)
[2020-12-29 20:00] VITALS: BP 124/59
[2020-12-30] VITALS: BP 142/67
[2020-12-30] MEDS ORDERED: UNRESOLVED CLARIFICATION ENTRY XX SCH (00:01)
[2020-12-30] MEDS: ACETAMINOPHEN TAB 650MG DOSE (2X325MG) PO PRN (02:55)
[2020-12-30] MEDS: LEVALBUTEROL 1.25 MG/0.5 ML CONCENTRATE NEB NEB SCH ×4 (03:00→19:14)
[2020-12-30 04:00] VITALS: BP 148/67
[2020-12-30 04:41] LABS: BASO % 0.3 % (0.0-1.0); EOS # 0.4 10^3/uL (0.0-0.5); EOS % 3.5 % (0.0-3.0); HEMATOCRIT 33.2 % (36.0-47.0); LYMPH # 1.3 10^3/uL (1.5-5.0); LYMPH % 10.9 % (24.0-44.0); MEAN CORPUSCULAR HEMOGLOBIN 31.9 pg (27.0-33.0); MEAN CORPUSCULAR HGB CONC 33.1 g/dl (32.0-36.5); MEAN CORPUSCULAR VOLUME 96.2 fl (80.0-96.0); NEUTROPHILS # 8.7 10^3/uL (1.5-8.5); NEUTROPHILS % 75.8 % (36.0-66.0); PLATELET COUNT, AUTOMATED 219 10^3/uL (150-450); RED BLOOD COUNT 3.45 10^6/uL (4.00-5.40); WHITE BLOOD COUNT 11.5 10^3/uL (4.0-10.0)
[2020-12-30] MEDS: KETOROLAC 30 MG/ML 1ML VIAL IV SCH ×4 (04:44→21:05)
[2020-12-30 05:14] LABS: BLOOD UREA NITROGEN 25 MG/DL (7-18); CALCIUM LEVEL 8.9 MG/DL (8.8-10.2); CARBON DIOXIDE LEVEL 32 MEQ/L (21-32); CHLORIDE LEVEL 106 MEQ/L (98-107); CREATININE FOR GFR 0.89 MG/DL (0.55-1.30); GLOMERULAR FILTRATION RATE > 60.0 (>45); GLUCOSE, FASTING 99 MG/DL (70-100); POTASSIUM SERUM 4.7 MEQ/L (3.5-5.1); SODIUM LEVEL 139 MEQ/L (136-145)
[2020-12-30 07:30] VITALS: BP 132/63
[2020-12-30] MEDS: HumaLOG INSULIN (NovoLOG) PER UNIT SC SCH ×4 (07:30→21:00)
--- NOTE | 2020-12-30 08:12 | REP ---
INDICATION: s/p wedge resections RUL COMPARISON: 12/29/2020 TECHNIQUE: PA and lateral. FINDINGS: The mediastinum and cardiac silhouette are stable. Two right-sided chest tubes and right-sided postsurgical changes are similar to prior examination. Subtle left lower lobe/retrocardiac atelectasis is improved. No effusion. No obvious residual pneumothorax. Skeletal structures are intact. IMPRESSION: 1. Right-sided postsurgical changes similar to prior examination. No obvious residual pneumothorax. 2. Subtle left basilar atelectasis appears improved. <Electronically signed by Major Toledo > 12/30/20 0809
[2020-12-30] MEDS ORDERED: FUROSEMIDE 40MG/4ML VIAL (J1940) IV ONE (09:00)
[2020-12-30] MEDS: MOM 30ML SUSPENSION UDC PO SCH (09:11)
[2020-12-30] MEDS: hydroCHLOROthiazide 12.5 MG CAPSULE PO SCH (09:11)
[2020-12-30] MEDS: atenoloL 25 MG TAB PO SCH (09:12)
[2020-12-30] MEDS: HEPARIN SOD (PORCINE) 5000UNITS/ML 1ML VIAL/SYRINGE SC SCH ×2 (09:13→21:05)
[2020-12-30] MEDS: PANTOPRAZOLE 40MG TAB (PROTONIX) PO SCH (09:13)
[2020-12-30] MEDS: DOCUSATE SODIUM 100MG CAPSULE PO SCH ×2 (09:13→21:04)
[2020-12-30] MEDS: PRAVASTATIN 10 MG TAB PO SCH (10:39)
[2020-12-30] MEDS: metFORMIN XR 500MG TAB *GLUCOPHAGE XR PO SCH ×2 (10:40→21:04)
[2020-12-30 11:30] VITALS: BP 104/51
--- NOTE | 2020-12-30 12:54 | IPN ---
PROGRESS NOTE DATE: 12/30/2020 This is now postoperative day #3 for Mrs. Vargas. There is no air leak, but she has drained a little bit too much to remove the chest tube. I have discussed with her the pathology findings. Her pain is being well controlled by use of the epidural, and I will turn that down to 4. Her vital signs show a maximum temperature (T-max) of 97.5 with a heart rate that ranges 60-90 in a sinus rhythm, respiratory rate that is constant at 18, who is 91%-100% saturated on 1 liter nasal cannula, and whose blood pressure is ranging between 148/67 to 104/51. Her intake and output for the past 24 hours have been recorded as 790 in and 835 out, for a negativity of 1000 mL. She has put out 245 from the chest tube, and there is no air leak. She weighs 91 kg today compared to 90.2 kg yesterday. PHYSICAL EXAMINATION: She has equal breath sounds on either side; however, she has bilateral wheezing, more on the left than the right, however. Percussion note is full to the diaphragm. Cardiac exam is without murmurs, clicks, gallops, or rubs. I cannot feel her point of maximal impulse (PMI). S1 and S2 are normal. Abdomen is soft and nontender. Bowel sounds are positive. There is no hepatomegaly. No costovertebral angle (CVA) tenderness. Extremities show no pretibial edema, no calf tenderness, no differential swelling of the upper extremities. Skin is warm, dry, and perfused without cyanosis or mottling, including that of the nailbeds and knees. Neck is supple. There is no jugular venous distention. No subcutaneous emphysema. Trachea is midline. Mouth shows the mucous membranes to be pink and moist. Lips and commissures without lesions. No thrush. Eyes show her pupils to be equal and reactive. Extraocular motion intact. Sclerae anicteric. Neurologic shows II-XII intact. Normal gross motor, gross sensation intact. Gait is not tested. Psychiatric shows her to be awake, alert, and oriented times three with appropriate mood and affect and conversational. Her white count today is 11.5 with a hemoglobin and hematocrit off 11.0 and 33.2, respectively. Platelet count is 219. Differential shows 75% neutrophils, 10% lymphocytes, and 9% monocytes. There are no immature forms or toxic granulations. Her electrolytes are normal with a BUN and creatinine of 25 and 0.89, glucose of 99, and a calcium of 8.9. Her chest x-ray shows her lung fully expanded to the chest wall. Chest tubes are in good place. She still has some cephalization of vessels with increased vascularity. IMPRESSION: 1. Lepidic adenocarcinoma, right upper lobe. 2. 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 3. Diabetes. 4. Hypercholesterolemia. 5. Hypertension. 6. Postoperative day #3 status post multiple wedge resections, right upper lobe. PLAN AND DISCUSSION: I will continue to diurese here. I will put her on a long-acting bronchodilator. The short-acting nebulizers still show her to be wheezing. It may be also secondary to increased intravascular water from her surgery. I did diurese her yesterday, and I will again diurese her today. I will start her on Spiriva.
[2020-12-30] MEDS: TIOTROPIUM INHALER/CAPSULE (SPIRIVA) INH SCH (13:37)
[2020-12-30 16:17] VITALS: BP 110/53
[2020-12-30] MEDS: FENTANYL/BUPIVACAINE/NACL BAG 250 ML EPIDURAL SCH (18:17)
[2020-12-30 20:00] VITALS: BP 122/57
[2020-12-31] VITALS (7 sets, daily range): BP systolic 109–147; BP diastolic 54–78
[2020-12-31] MEDS: LEVALBUTEROL 1.25 MG/0.5 ML CONCENTRATE NEB NEB SCH ×4 (01:33→20:04)
[2020-12-31 04:41] LABS: BASO % 0.4 % (0.0-1.0); EOS # 0.7 10^3/uL (0.0-0.5); EOS % 6.4 % (0.0-3.0); HEMATOCRIT 34.1 % (36.0-47.0); HEMOGLOBIN 11.2 g/dl (12.0-15.5); LYMPH # 1.7 10^3/uL (1.5-5.0); LYMPH % 15.9 % (24.0-44.0); MEAN CORPUSCULAR HEMOGLOBIN 31.1 pg (27.0-33.0); MEAN CORPUSCULAR HGB CONC 32.8 g/dl (32.0-36.5); MEAN CORPUSCULAR VOLUME 94.7 fl (80.0-96.0); MONO # 0.9 10^3/uL (0.0-0.8); MONO % 8.6 % (2.0-8.0); NEUTROPHILS # 7.3 10^3/uL (1.5-8.5); NEUTROPHILS % 68.2 % (36.0-66.0); PLATELET COUNT, AUTOMATED 267 10^3/uL (150-450); WHITE BLOOD COUNT 10.7 10^3/uL (4.0-10.0)
[2020-12-31 05:02] LABS: BLOOD UREA NITROGEN 32 MG/DL (7-18); CALCIUM LEVEL 8.8 MG/DL (8.8-10.2); CARBON DIOXIDE LEVEL 33 MEQ/L (21-32); CHLORIDE LEVEL 103 MEQ/L (98-107); CREATININE FOR GFR 0.88 MG/DL (0.55-1.30); GLOMERULAR FILTRATION RATE > 60.0 (>45); GLUCOSE, FASTING 105 MG/DL (70-100); SODIUM LEVEL 138 MEQ/L (136-145)
[2020-12-31] MEDS: KETOROLAC 30 MG/ML 1ML VIAL IV SCH ×4 (05:02→21:03)
[2020-12-31] MEDS: TIOTROPIUM INHALER/CAPSULE (SPIRIVA) INH SCH (07:08)
[2020-12-31] MEDS: HumaLOG INSULIN (NovoLOG) PER UNIT SC SCH ×4 (07:30→21:00)
--- NOTE | 2020-12-31 08:41 | REP ---
INDICATION: s/p wedge resections RUL COMPARISON: 12/30/2020 TECHNIQUE: PA and lateral. FINDINGS: Mediastinum and cardiac silhouette as well as the left hemithorax appear relatively normal, clear,and stable. Postsurgical changes involving the right hemithorax including stable right-sided chest tubes and subtle opacities are unchanged. No obvious residual pneumothorax identified. IMPRESSION: Stable postsurgical changes the right hemithorax. No new acute process. <Electronically signed by Major Toledo > 12/31/20 0806
[2020-12-31] MEDS: MOM 30ML SUSPENSION UDC PO SCH (09:12)
[2020-12-31] MEDS: HEPARIN SOD (PORCINE) 5000UNITS/ML 1ML VIAL/SYRINGE SC SCH ×2 (09:13→20:57)
[2020-12-31] MEDS: hydroCHLOROthiazide 12.5 MG CAPSULE PO SCH (09:13)
[2020-12-31] MEDS: metFORMIN XR 500MG TAB *GLUCOPHAGE XR PO SCH ×2 (09:13→20:57)
[2020-12-31] MEDS: PANTOPRAZOLE 40MG TAB (PROTONIX) PO SCH (09:14)
[2020-12-31] MEDS: atenoloL 25 MG TAB PO SCH (09:14)
[2020-12-31] MEDS: DOCUSATE SODIUM 100MG CAPSULE PO SCH ×2 (09:15→21:00)
[2020-12-31] MEDS: PRAVASTATIN 10 MG TAB PO SCH (09:15)
--- NOTE | 2020-12-31 16:52 | IPN ---
PROGRESS NOTE DATE: 12/31/2020 SUBJECTIVE: This is now the 4th postoperative day for Ms. Vargas. She is doing well and her pain control is being well controlled with the epidural. OBJECTIVE: Her vital signs show a T-max of 97.0 with a heart rate ranging between 74 and 77 in sinus rhythm, respiratory rate of 14 to 18 without the use of accessory muscles with 93 to 96% saturating on 2 liters nasal canula, has blood pressures ranging between 116/58 to 143/66. Intake and output for the past 24 hours recorded 860 in and 1990 out for a negativity of 1100 ml. She has put out 140 ml from the chest tube and there is no air leak. Her weight today is 86.3 kg compared to 91 kg yesterday. She put out 1800 ml in urine yesterday in response to Lasix. PHYSICAL EXAMINATION: She has equal sounds on either side. There is some scattered rhonchi particularly on the right side. Her wheezing has resolved. Percussion was full to the diaphragm. Cardiac examination without murmurs, clicks, gallops or rubs. I cannot feel her PMI. S1, S2 are normal. Abdomen is soft and nontender. Bowel sounds are positive. There is no hepatomegaly. No costovertebral angle (CVA) tenderness. She had a bowel movement. Extremities show no pretibial edema, no calf tenderness. No differential swelling of the upper extremities. Skin is warm, dry and perfuse without cyanosis or mottling including nailbeds and knees. Neck is supple. There is no jugular venous distention. No subcutaneous emphysema. Trachea is midline. Mouth shows her mucous membranes to be pink and moist. Lips and commissures are without lesions or thrush. Eyes show her pupils equal and reactive. Extraocular motions intact. Sclerae nonicteric. Neuro: Neuro: CN II-XII intact with gross motor intact. Gait is not tested. Psychiatric: Alert, awake and oriented times 3 with appropriate mood and affect and conversational. LABORATORY DATA: Her white count today is 10.7 with hemoglobin and hematocrit 11.2 and 34.1 unchanged from yesterday with a platelet count of 267 and stable. Differential shows 60% neutrophils, 15% lymphocytes and 8% monocytes. There are no immature forms or toxic granulations. Her electrolytes are essentially normal with a marginally high total Co2 of 3. BUN and creatinine are 32 and 0.88 with a glucose of 105 and a calcium 8.8. Her chest x-ray shows her lungs fully expanded to the chest wall. Costophrenic angles are sharp and there are no infiltrates. Chest tube is in good place. IMPRESSION: 1. Postoperative day #4, status post multiple wedge resections of right upper lobe. 2. Adenocarcinoma of the both lesions right upper lobe. 3. Diabetes. 4. Hypercholesterolemia. 5. Hypertension. PLAN/DISCUSSION: I will remove her chest tube today, wean the epidural and discontinue her Kowalski catheter. If all goes well, will plan for discharge in the morning. I will discuss her tumor conference on Friday.
[2021-01-01] VITALS: BP 124/59
[2021-01-01] MEDS: LEVALBUTEROL 1.25 MG/0.5 ML CONCENTRATE NEB NEB SCH ×2 (02:40→08:16)
[2021-01-01 04:00] VITALS: BP 127/60
[2021-01-01] MEDS: KETOROLAC 30 MG/ML 1ML VIAL IV SCH ×2 (05:10→09:03)
[2021-01-01 05:40] LABS: BASO # 0.1 10^3/uL (0.0-0.2); BASO % 0.5 % (0.0-1.0); EOS # 0.8 10^3/uL (0.0-0.5); EOS % 7.6 % (0.0-3.0); HEMATOCRIT 32.5 % (36.0-47.0); LYMPH # 1.6 10^3/uL (1.5-5.0); LYMPH % 15.9 % (24.0-44.0); MEAN CORPUSCULAR HEMOGLOBIN 31.4 pg (27.0-33.0); MEAN CORPUSCULAR HGB CONC 33.8 g/dl (32.0-36.5); MEAN CORPUSCULAR VOLUME 92.9 fl (80.0-96.0); MONO # 1.1 10^3/uL (0.0-0.8); NEUTROPHILS # 6.4 10^3/uL (1.5-8.5); NEUTROPHILS % 64.4 % (36.0-66.0); PLATELET COUNT, AUTOMATED 281 10^3/uL (150-450)
[2021-01-01 06:04] LABS: BLOOD UREA NITROGEN 29 MG/DL (7-18); CALCIUM LEVEL 9.3 MG/DL (8.8-10.2); CARBON DIOXIDE LEVEL 34 MEQ/L (21-32); CHLORIDE LEVEL 102 MEQ/L (98-107); CREATININE FOR GFR 0.72 MG/DL (0.55-1.30); GLOMERULAR FILTRATION RATE > 60.0 (>45); GLUCOSE, FASTING 117 MG/DL (70-100); POTASSIUM SERUM 3.7 MEQ/L (3.5-5.1); SODIUM LEVEL 139 MEQ/L (136-145)
[2021-01-01] MEDS: HumaLOG INSULIN (NovoLOG) PER UNIT SC SCH ×2 (07:30→11:54)
--- NOTE | 2021-01-01 07:58 | REP ---
INDICATION: s/p wedge resections RUL COMPARISON: 12/31/2020 TECHNIQUE: PA and lateral. FINDINGS: Right-sided chest tubes have been removed and postsurgical changes involving the right hemithorax appear relatively stable. No new acute consolidation, effusion, or obvious pneumothorax. Cardiac silhouette is normal. Skeletal structures are intact. IMPRESSION: Chest tubes removed. Stable right-sided postsurgical changes. No new acute process appreciated. <Electronically signed by Major Toledo > 01/01/21 [id number]
[2021-01-01 08:00] VITALS: BP 135/62
[2021-01-01] MEDS: DOCUSATE SODIUM 100MG CAPSULE PO SCH (09:00)
[2021-01-01] MEDS: MOM 30ML SUSPENSION UDC PO SCH (09:00)
[2021-01-01] MEDS: PANTOPRAZOLE 40MG TAB (PROTONIX) PO SCH (09:01)
[2021-01-01] MEDS: hydroCHLOROthiazide 12.5 MG CAPSULE PO SCH (09:01)
[2021-01-01] MEDS: atenoloL 25 MG TAB PO SCH (09:02)
[2021-01-01] MEDS: metFORMIN XR 500MG TAB *GLUCOPHAGE XR PO SCH (09:02)
[2021-01-01] MEDS: HEPARIN SOD (PORCINE) 5000UNITS/ML 1ML VIAL/SYRINGE SC SCH (09:03)
[2021-01-01] MEDS: PRAVASTATIN 10 MG TAB PO SCH (09:03)
[2021-01-01] MEDS ORDERED: HYDR-3715 PO (11:36)
[2021-01-01] MEDS ORDERED: TIOT18INH INH (11:36)
--- NOTE | 2021-01-02 09:31 | DSES ---
DISCHARGE SUMMARY DATE OF ADMISSION: 12/27/2020 DATE OF DISCHARGE: 01/01/2021 DISCHARGE DIAGNOSES: 1. Postoperative day 5, status post multiple wedge resections of right upper lobe. 2. Adenocarcinoma, both lesions right upper lobe, lepidic acinar pattern. 3. Diabetes. 4. Hypercholesterolemia. 5. Hypertension. 6. Chronic obstructive pulmonary disease (COPD). 7. Prior tobacco use. HOSPITAL COURSE: The patient is a 60-year-old white female, who is status post a left lower lobectomy in 2009 for bronchoalveolar carcinoma with negative hilar and mediastinal nodes, but microscopic nests of hyperplasia bronchoalveolar carcinoma throughout the remaining lung specimen. It was unclear at the time, and probably still is, as to what these small nests represented, but a degree that she has not required further therapy. She was found over the last 10 years and was found recently to have two right upper lobe lesions of which the posterior one was seen to grow over the past year. The anterior lesion was somewhat speculated. She had no respiratory symptomology. There is no fever, chills or sweats. No cough, no sputum production and no chest pain. She underwent navigational bronchoscopy, which proved equivocal. She was therefore referred for surgical intervention. There were two lesions. She had had a previous lobectomy on the other side with pulmonary function tests, which showed an FEV1 of 1.75 and a predicted FEV1 of 1.1 and diffusion capacity of 50%. It was felt that she would not be a candidate for a lobectomy. Possibly it was a bronchoalveolar carcinoma with lepidic spread that was probably elsewhere and would need systemic therapy. She therefore underwent two wedge resections of the upper lobe lesions. Final pathology is reported as above. She had a benign postoperative course with her chest tube being removed on the 4th postoperative day. She was diuresed during the postoperative period. She is being discharged today on her home medications, which include Atenolol 50 mg q day, vitamin D 1250 mcg q week, hydrochlorothiazide 12.5 mg q day, metformin 1000 mg twice a day, pravastatin 10 mg q day, valsartan/hydrochlorothiazide one tab q day. She is also being sent home on Vicodin 5/325 mg q 3 hours as needed for pain to be augmented with either Aleve or ibuprofen, but not both. She is also being placed on Spiriva 18 mcg q day by inhalation. She will return to see me in one week with a chest x-ray. Her chest x-ray on discharge shows her lungs to be fully expanded to the chest wall with no infiltrates and costophrenic angles are sharp. Her discharge hemoglobin and hematocrit 11.0 and 32 with a discharge white count of 10.0 and a platelet count of 281. Electrolytes are essentially normal with a marginally elevated total Co2 of 34 and BUN and creatinine of 29 and 0.72.
== END 2021-01-01 13:11 | disposition home or self-care (01) | DRG 121 ==
LOC: M OR 07:01 → M ICU 16:01 → M PCU 12-29 01:11
PROVIDERS: ADMIT Thoracic Surgery (Cardiothoracic Vascular Surgery); ATTEND Thoracic Surgery (Cardiothoracic Vascular Surgery)
PROC: 0BJ08ZZ Inspection of Tracheobronchial Tree, Via Natural or Artificial Opening Endoscopic (ICD-10-PCS; 2020-12-27)
PROC: 0BBG0ZX Excision of Left Upper Lung Lobe, Open Approach, Diagnostic (ICD-10-PCS; principal; 2020-12-27 08:45)
DX: C34.11 Malignant neoplasm of upper lobe, right bronchus or lung (principal); E11.9 Type 2 diabetes mellitus without complications; E78.00 Pure hypercholesterolemia, unspecified; I10 Essential (primary) hypertension; Z79.84 Long term (current) use of oral hypoglycemic drugs; Z79.899 Other long term (current) drug therapy; Z53.31 Laparoscopic surgical procedure converted to open procedure; Z87.891 Personal history of nicotine dependence

== ENCOUNTER → 2021-01-11 | Outpatient (CLI) | payer OTHER ==
[~2021-01-11] MED LIST changes: +HYDR-3715 PO; -LR 1,000 ML IV ONE; +TIOT18INH INH
--- NOTE | 2021-01-11 09:28 | REP ---
INDICATION: ABNORMAL LUNG FINDING COMPARISON: 01/01/2021 TECHNIQUE: PA and lateral. FINDINGS: The mediastinum and cardiac silhouette are normal/stable. The lung raza are clear and without acute consolidation, effusion, or pneumothorax. Postsurgical changes at the medial right upper lung zone consistent with prior wedge resection noted. The skeletal structures are intact and normal. IMPRESSION: No acute cardiopulmonary process. <Electronically signed by Major Toledo > 01/11/21 [id number]
== END ==
LOC: M PLALAB 08:55
PROVIDERS: ATTEND Thoracic Surgery (Cardiothoracic Vascular Surgery)
DX: R91.8 Other nonspecific abnormal finding of lung field (principal)

== ENCOUNTER → 2021-01-31 | Outpatient (REF) | payer OTHER ==
[~2021-01-31] MED LIST changes: +ONDA8TAB10 PO; +PROC10TA4 PO
[2021-01-31 12:46] LABS: HEMOGLOBIN A1c 5.6 %
[2021-01-31 14:01] LABS: BLOOD UREA NITROGEN 14 MG/DL (7-18); CALCIUM LEVEL 10.2 MG/DL (8.8-10.2); CARBON DIOXIDE LEVEL 30 MEQ/L (21-32); CHLORIDE LEVEL 99 MEQ/L (98-107); CHOLESTEROL LEVEL 165 MG/DL (<200); CHOLESTEROL RISK RATIO 2.462 (<5); CREATININE FOR GFR 0.78 MG/DL (0.55-1.30); GLOMERULAR FILTRATION RATE > 60.0 (>45); GLUCOSE, FASTING 110 MG/DL (70-100); HDL CHOLESTEROL 67 MG/DL (>40); LDL CHOLESTEROL 76 MG/DL (<100); NON-HDL-C 98 MG/DL; POTASSIUM SERUM 4.1 MEQ/L (3.5-5.1); SODIUM LEVEL 136 MEQ/L (136-145); TRIGLYCERIDES LEVEL 110 MG/DL (<150)
== END ==
LOC: M SFHCCLAY 08:22
PROVIDERS: ATTEND Family Medicine
DX: E11.9 Type 2 diabetes mellitus without complications (principal); I11.9 Hypertensive heart disease without heart failure

== ENCOUNTER → 2021-02-27 | Outpatient (REF) | payer OTHER ==
[~2021-02-27] MED LIST changes: +MACR100C42 PO
[2021-02-28 12:19] LABS: BASO # 0.3 10^3/uL (0.0-0.2); BASO % 0.7 % (0.0-1.0); EOS # 0.2 10^3/uL (0.0-0.5); EOS % 0.4 % (0.0-3.0); HEMATOCRIT 35.4 % (36.0-47.0); HEMOGLOBIN 11.6 g/dl (12.0-15.5); LYMPH # 3.3 10^3/uL (1.5-5.0); LYMPH % 7.5 % (24.0-44.0); MEAN CORPUSCULAR HEMOGLOBIN 31.8 pg (27.0-33.0); MEAN CORPUSCULAR HGB CONC 32.8 g/dl (32.0-36.5); MONO # 2.7 10^3/uL (0.0-0.8); NEUTROPHILS # 36.1 10^3/uL (1.5-8.5); NEUTROPHILS % 81.4 % (36.0-66.0); PLATELET COUNT, AUTOMATED 297 10^3/uL (150-450); RED BLOOD COUNT 3.65 10^6/uL (4.00-5.40)
[2021-02-28 12:25] LABS: WHITE BLOOD COUNT 44.3 10^3/uL (4.0-10.0)
[2021-02-28 12:36] LABS: CALCIUM LEVEL 10.2 MG/DL (8.8-10.2); CREATININE FOR GFR 1.22 MG/DL (0.55-1.30); GLOMERULAR FILTRATION RATE 47.9 (>45); POTASSIUM SERUM 4.3 MEQ/L (3.5-5.1)
[2021-02-28 12:37] LABS: ALBUMIN 3.6 GM/DL (3.2-5.2); BILIRUBIN,TOTAL 0.2 MG/DL (0.2-1.0); MAGNESIUM LEVEL 2.1 MG/DL (1.8-2.4)
== END ==
LOC: M LABDRAWC 11:35
PROVIDERS: ATTEND Specialist
DX: C34.90 Malignant neoplasm of unspecified part of unspecified bronchus or lung (principal)

== ENCOUNTER → 2021-03-20 | Outpatient (REF) | payer OTHER ==
[2021-03-21 11:44] LABS: BASO # 0.1 10^3/uL (0.0-0.2); BASO % 1.1 % (0.0-1.0); EOS # 0.1 10^3/uL (0.0-0.5); EOS % 0.5 % (0.0-3.0); HEMATOCRIT 35.4 % (36.0-47.0); HEMOGLOBIN 11.7 g/dl (12.0-15.5); LYMPH # 2.8 10^3/uL (1.5-5.0); MEAN CORPUSCULAR HEMOGLOBIN 31.4 pg (27.0-33.0); MEAN CORPUSCULAR HGB CONC 33.1 g/dl (32.0-36.5); MEAN CORPUSCULAR VOLUME 94.9 fl (80.0-96.0); MONO # 1.2 10^3/uL (0.0-0.8); MONO % 11.5 % (2.0-8.0); NEUTROPHILS # 6.1 10^3/uL (1.5-8.5); NEUTROPHILS % 59.1 % (36.0-66.0); PLATELET COUNT, AUTOMATED 376 10^3/uL (150-450); RED BLOOD COUNT 3.73 10^6/uL (4.00-5.40); WHITE BLOOD COUNT 10.3 10^3/uL (4.0-10.0)
[2021-03-21 12:10] LABS: BLOOD UREA NITROGEN 17 MG/DL (7-18); GLUCOSE, FASTING 100 MG/DL (70-100)
[2021-03-21 12:11] LABS: ALBUMIN 3.8 GM/DL (3.2-5.2); ALT/SGPT 54 U/L (12-78); BILIRUBIN,TOTAL 0.3 MG/DL (0.2-1.0); CALCIUM LEVEL 10.4 MG/DL (8.8-10.2); CARBON DIOXIDE LEVEL 30 MEQ/L (21-32); CHLORIDE LEVEL 100 MEQ/L (98-107); CREATININE FOR GFR 0.98 MG/DL (0.55-1.30); GLOMERULAR FILTRATION RATE > 60.0 (>45); MAGNESIUM LEVEL 2.1 MG/DL (1.8-2.4); POTASSIUM SERUM 4.7 MEQ/L (3.5-5.1); SODIUM LEVEL 136 MEQ/L (136-145); TOTAL PROTEIN 7.2 GM/DL (6.4-8.2)
== END ==
LOC: M LABDRAWC 11:02
PROVIDERS: ATTEND Specialist
DX: C34.12 Malignant neoplasm of upper lobe, left bronchus or lung (principal)

== ENCOUNTER → 2021-04-10 | Outpatient (REF) | payer OTHER ==
[~2021-04-10] MED LIST changes: +ONDA-84 PO; -ONDA8TAB10 PO; -PROC10TA4 PO; +PROC10TA5 PO
[2021-04-11 12:18] LABS: BASO # 0.1 10^3/uL (0.0-0.2); BASO % 1.3 % (0.0-1.0); EOS % 0.6 % (0.0-3.0); HEMATOCRIT 33.9 % (36.0-47.0); HEMOGLOBIN 11.4 g/dl (12.0-15.5); LYMPH # 2.3 10^3/uL (1.5-5.0); LYMPH % 33.1 % (24.0-44.0); MEAN CORPUSCULAR HEMOGLOBIN 32.1 pg (27.0-33.0); MEAN CORPUSCULAR HGB CONC 33.6 g/dl (32.0-36.5); MEAN CORPUSCULAR VOLUME 95.5 fl (80.0-96.0); MONO # 0.9 10^3/uL (0.0-0.8); MONO % 12.3 % (2.0-8.0); NEUTROPHILS # 3.7 10^3/uL (1.5-8.5); NEUTROPHILS % 51.7 % (36.0-66.0); PLATELET COUNT, AUTOMATED 371 10^3/uL (150-450); RED BLOOD COUNT 3.55 10^6/uL (4.00-5.40); WHITE BLOOD COUNT 7.1 10^3/uL (4.0-10.0)
[2021-04-11 12:48] LABS: ALBUMIN 3.7 GM/DL (3.2-5.2); ALT/SGPT 54 U/L (12-78); BILIRUBIN,TOTAL 0.2 MG/DL (0.2-1.0); BLOOD UREA NITROGEN 16 MG/DL (7-18); CALCIUM LEVEL 9.8 MG/DL (8.8-10.2); CARBON DIOXIDE LEVEL 29 MEQ/L (21-32); CHLORIDE LEVEL 102 MEQ/L (98-107); CREATININE FOR GFR 0.84 MG/DL (0.55-1.30); GLOMERULAR FILTRATION RATE > 60.0 (>45); GLUCOSE, FASTING 170 MG/DL (70-100); MAGNESIUM LEVEL 1.9 MG/DL (1.8-2.4); POTASSIUM SERUM 4.4 MEQ/L (3.5-5.1); SODIUM LEVEL 139 MEQ/L (136-145); TOTAL PROTEIN 7.1 GM/DL (6.4-8.2)
== END ==
LOC: M LABDRAWC 11:58
PROVIDERS: ATTEND Specialist
DX: C34.12 Malignant neoplasm of upper lobe, left bronchus or lung (principal)

== ENCOUNTER → 2021-06-04 | Outpatient (CLI) | payer OTHER | LOC: M PLARAD 11:11 | PROVIDERS: ATTEND Internal Medicine Medical Oncology | DX: C34.90 Malignant neoplasm of unspecified part of unspecified bronchus or lung (principal) | CPT/HCPCS: 78815; A9552 ==

== ENCOUNTER → 2021-10-12 | Outpatient (CLI) | payer OTHER ==
[~2021-10-12] MED LIST changes: +ISOVUE-370 76% 100ML VIAL ONE
== END ==
LOC: M PLAIMG 08:56
PROVIDERS: ATTEND Specialist
DX: Z85.118 Personal history of other malignant neoplasm of bronchus and lung (principal)
CPT/HCPCS: 71260; Q9967

== ENCOUNTER → 2021-11-27 | Outpatient (REF) | payer OTHER ==
[~2021-11-27] MED LIST changes: -ISOVUE-370 76% 100ML VIAL ONE
[2021-11-27 12:04] LABS: CREATININE, URINE 63.4 MG/DL; MALB URINE SIEMENS 7.5 MG/L; MAU/CREAT RATIO 11.8 MCG/MG (0.0-30.0)
[2021-11-27 12:13] LABS: BLOOD UREA NITROGEN 18 MG/DL (7-18); CALCIUM LEVEL 10.3 MG/DL (8.8-10.2); CARBON DIOXIDE LEVEL 30 MEQ/L (21-32); CHLORIDE LEVEL 104 MEQ/L (98-107); CREATININE FOR GFR 0.88 MG/DL (0.55-1.30); GLOMERULAR FILTRATION RATE > 60.0 (>45); GLUCOSE, FASTING 112 MG/DL (70-100); POTASSIUM SERUM 4.5 MEQ/L (3.5-5.1); SODIUM LEVEL 140 MEQ/L (136-145)
[2021-11-27 12:31] LABS: TOTAL 25(OH) VITAMIN D 63.7 NG/ML (30.0-100.0)
[2021-11-27 13:02] LABS: HEMOGLOBIN A1c 6.2 %
== END ==
LOC: M SFHCCLAY 08:06
PROVIDERS: ATTEND Family Medicine
DX: E11.9 Type 2 diabetes mellitus without complications (principal); E55.9 Vitamin D deficiency, unspecified

== ENCOUNTER → 2022-05-07 | Outpatient (CLI) | payer OTHER ==
[~2022-05-07] MED LIST changes: +ISOVUE-370 76% 100ML VIAL As Ordered ONE
== END ==
LOC: M RAD 09:48
PROVIDERS: ATTEND Specialist
DX: C34.12 Malignant neoplasm of upper lobe, left bronchus or lung (principal); Z90.2 Acquired absence of lung [part of]

== ENCOUNTER → 2022-05-27 | Outpatient (REF) | payer OTHER ==
[~2022-05-27] MED LIST changes: -ISOVUE-370 76% 100ML VIAL As Ordered ONE
[2022-05-27 12:36] LABS: WHITE BLOOD COUNT 7.5 10^3/uL (4.0-10.0)
[2022-05-27 12:37] LABS: HEMATOCRIT 41.1 % (36.0-47.0); HEMOGLOBIN 13.5 g/dl (12.0-15.5); MEAN CORPUSCULAR HEMOGLOBIN 31.8 pg (27.0-33.0); MEAN CORPUSCULAR HGB CONC 32.8 g/dl (32.0-36.5); MEAN CORPUSCULAR VOLUME 96.9 fl (80.0-96.0); PLATELET COUNT, AUTOMATED 274 10^3/uL (150-450); RED BLOOD COUNT 4.24 10^6/uL (4.00-5.40)
[2022-05-27 13:06] LABS: CHOLESTEROL RISK RATIO 2.43 (<5); HDL CHOLESTEROL 68.2 MG/DL (>40); LDL CHOLESTEROL 76.8 MG/DL (<100)
[2022-05-27 13:22] LABS: HEMOGLOBIN A1c 5.8 % (4.0-6.0)
== END ==
LOC: M SFHCCLAY 07:59
PROVIDERS: ATTEND Nurse Practitioner Family
DX: E11.9 Type 2 diabetes mellitus without complications (principal); I11.9 Hypertensive heart disease without heart failure; E55.9 Vitamin D deficiency, unspecified

== ENCOUNTER → 2022-12-04 | Outpatient (REF) | payer OTHER ==
[2022-12-04 17:41] LABS: BASO # 0.1 10^3/uL (0.0-0.2); BASO % 0.7 % (0.0-1.0); EOS # 0.2 10^3/uL (0.0-0.5); EOS % 2.1 % (0.0-3.0); HEMATOCRIT 37.6 % (36.0-47.0); HEMOGLOBIN 12.5 g/dl (12.0-15.5); LYMPH # 2.4 10^3/uL (1.5-5.0); LYMPH % 26.6 % (24.0-44.0); MEAN CORPUSCULAR HEMOGLOBIN 31.5 pg (27.0-33.0); MEAN CORPUSCULAR HGB CONC 33.2 g/dl (32.0-36.5); MEAN CORPUSCULAR VOLUME 94.7 fl (80.0-96.0); MONO # 0.8 10^3/uL (0.0-0.8); MONO % 8.9 % (2.0-8.0); NEUTROPHILS # 5.5 10^3/uL (1.5-8.5); NEUTROPHILS % 61.5 % (36.0-66.0); PLATELET COUNT, AUTOMATED 297 10^3/uL (150-450); RED BLOOD COUNT 3.97 10^6/uL (4.00-5.40)
[2022-12-04 18:13] LABS: FREE T4 1.14 NG/DL (0.89-1.76); THYROID STIMULATING HORMONE 0.694 uIU/ML (0.55-4.78)
[2022-12-04 18:16] LABS: ALBUMIN 3.9 G/DL (3.2-5.2); ALKALINE PHOSPHATASE 48 U/L (46-116); ALT/SGPT 60 U/L (7.0-40); AST/SGOT 31 U/L (<34); BILIRUBIN,TOTAL 0.5 MG/DL (0.3-1.2); BLOOD UREA NITROGEN 26 MG/DL (9-23); CALCIUM LEVEL 9.6 MG/DL (8.3-10.6); CARBON DIOXIDE LEVEL 26 MMOL/L (20-31); CHLORIDE LEVEL 106 MMOL/L (98-107); CHOLESTEROL LEVEL 173 MG/DL (<200); CREATININE FOR GFR 0.99 MG/DL (0.55-1.30); GLOMERULAR FILTRATION RATE > 60.0 (>45); GLUCOSE, FASTING 93 MG/DL (74-106); HDL CHOLESTEROL 66.3 MG/DL (>40); LDL CHOLESTEROL 76.7 MG/DL (<100); NON-HDL-C 106.7 MG/DL; POTASSIUM SERUM 5.2 MMOL/L (3.5-5.1); SODIUM LEVEL 138 MMOL/L (136-145); TOTAL 25(OH) VITAMIN D 75.3 NG/ML (20.0-100.0); TOTAL PROTEIN 6.5 G/DL (5.7-8.2); TRIGLYCERIDES LEVEL 150 MG/DL (<150)
== END ==
LOC: M SFHCCLAY 10:19
PROVIDERS: ATTEND Nurse Practitioner Family
DX: I10 Essential (primary) hypertension (principal); E11.9 Type 2 diabetes mellitus without complications; E55.9 Vitamin D deficiency, unspecified; Z85.118 Personal history of other malignant neoplasm of bronchus and lung

== ENCOUNTER → 2022-12-26 | Outpatient (CLI) | payer OTHER ==
[~2022-12-26] MED LIST changes: +ISOVUE-370 76% 100ML VIAL As Ordered ONE
== END ==
LOC: M RAD 09:11
PROVIDERS: ATTEND Specialist
DX: Z08 Encounter for follow-up examination after completed treatment for malignant neoplasm (principal); Z85.118 Personal history of other malignant neoplasm of bronchus and lung
CPT/HCPCS: 71260; Q9967

== ENCOUNTER → 2023-06-23 | Outpatient (REF) | payer OTHER ==
[~2023-06-23] MED LIST changes: -ISOVUE-370 76% 100ML VIAL As Ordered ONE
[2023-06-23 11:59] LABS: HEMATOCRIT 40.7 % (36.0-47.0); HEMOGLOBIN 13.3 g/dl (12.0-15.5); MEAN CORPUSCULAR HEMOGLOBIN 31.3 pg (27.0-33.0); MEAN CORPUSCULAR HGB CONC 32.7 g/dl (32.0-36.5); MEAN CORPUSCULAR VOLUME 95.8 fl (80.0-96.0); NEUTROPHILS % 58.8 % (36.0-66.0); PLATELET COUNT, AUTOMATED 300 10^3/uL (150-450); RED BLOOD COUNT 4.25 10^6/uL (4.00-5.40); WHITE BLOOD COUNT 9.7 10^3/uL (4.0-10.0)
[2023-06-23 12:00] LABS: BASO # 0.1 10^3/uL (0.0-0.2); BASO % 0.7 % (0.0-1.0); EOS # 0.3 10^3/uL (0.0-0.5); EOS % 2.9 % (0.0-3.0); LYMPH # 2.8 10^3/uL (1.5-5.0); LYMPH % 29.4 % (24.0-44.0); MONO # 0.8 10^3/uL (0.0-0.8); MONO % 7.9 % (2.0-8.0); NEUTROPHILS # 5.7 10^3/uL (1.5-8.5)
[2023-06-23 12:28] LABS: HEMOGLOBIN A1c 6.1 % (4.0-6.0)
[2023-06-23 12:34] LABS: ALBUMIN 3.7 G/DL (3.2-5.2); ALKALINE PHOSPHATASE 55 U/L (46-116); ALT/SGPT 90 U/L (7.0-40); AST/SGOT 36 U/L (<34); BILIRUBIN,TOTAL 0.6 MG/DL (0.3-1.2); BLOOD UREA NITROGEN 21 MG/DL (9-23); CALCIUM LEVEL 9.7 MG/DL (8.3-10.6); CARBON DIOXIDE LEVEL 29 MMOL/L (20-31); CHLORIDE LEVEL 105 MMOL/L (98-107); CREATININE FOR GFR 0.86 MG/DL (0.55-1.30); GLOMERULAR FILTRATION RATE > 60.0 (>45); GLUCOSE, FASTING 116 MG/DL (74-106); POTASSIUM SERUM 4.4 MMOL/L (3.5-5.1); SODIUM LEVEL 139 MMOL/L (136-145); TOTAL PROTEIN 6.5 G/DL (5.7-8.2)
[2023-06-23 12:37] LABS: FREE T4 1.07 NG/DL (0.89-1.76); THYROID STIMULATING HORMONE 0.619 uIU/ML (0.55-4.78)
== END ==
LOC: M SFHCCLAY 08:00
PROVIDERS: ATTEND Nurse Practitioner Family
DX: I11.9 Hypertensive heart disease without heart failure (principal); E11.9 Type 2 diabetes mellitus without complications

== ENCOUNTER → 2023-12-08 | Outpatient (REF) | payer OTHER ==
[2023-12-08 12:27] LABS: ALBUMIN 4.1 G/DL (3.2-5.2); ALKALINE PHOSPHATASE 58 U/L (46-116); ALT/SGPT 130 U/L (7.0-40); AST/SGOT 59 U/L (<34); BILIRUBIN,TOTAL 0.8 MG/DL (0.3-1.2); BLOOD UREA NITROGEN 16 MG/DL (9-23); CALCIUM LEVEL 10.3 MG/DL (8.3-10.6); CARBON DIOXIDE LEVEL 31 MMOL/L (20-31); CHLORIDE LEVEL 100 MMOL/L (98-107); CHOLESTEROL LEVEL 176 MG/DL (<200); CHOLESTEROL RISK RATIO 2.62 (<5); CREATININE FOR GFR 0.75 MG/DL (0.55-1.30); GLOMERULAR FILTRATION RATE > 60.0 (>45); GLUCOSE, FASTING 123 MG/DL (74-106); LDL CHOLESTEROL 88.6 MG/DL (<100); POTASSIUM SERUM 4.5 MMOL/L (3.5-5.1); SODIUM LEVEL 137 MMOL/L (136-145); TOTAL PROTEIN 7.1 G/DL (5.7-8.2); TRIGLYCERIDES LEVEL 102 MG/DL (<150)
[2023-12-08 12:58] LABS: HEMOGLOBIN A1c 6.1 % (4.0-6.0)
== END ==
LOC: M SFHCCLAY 07:46
PROVIDERS: ATTEND Nurse Practitioner Family
DX: E11.9 Type 2 diabetes mellitus without complications (principal); I11.9 Hypertensive heart disease without heart failure; E78.5 Hyperlipidemia, unspecified

== ENCOUNTER → 2023-12-23 | Outpatient (CLI) | payer OTHER ==
[~2023-12-23] MED LIST changes: +ISOVUE-370 76% 100ML VIAL As Ordered ONE
== END ==
LOC: M RAD 10:11
PROVIDERS: ATTEND Internal Medicine Medical Oncology
DX: C34.90 Malignant neoplasm of unspecified part of unspecified bronchus or lung (principal); Z90.2 Acquired absence of lung [part of]
CPT/HCPCS: 71260; Q9967

== ENCOUNTER → 2024-05-31 | Outpatient (REF) | payer OTHER ==
[~2024-05-31] MED LIST changes: -ISOVUE-370 76% 100ML VIAL As Ordered ONE
[2024-05-31 14:54] LABS: ALBUMIN 3.9 G/DL (3.2-5.2); BILIRUBIN,TOTAL 0.5 MG/DL (0.3-1.2); CALCIUM LEVEL 10.4 MG/DL (8.3-10.6); CHOLESTEROL RISK RATIO 2.55 (<5); CREATININE FOR GFR 1.06 MG/DL (0.55-1.30); GLOMERULAR FILTRATION RATE 55.7 (>45); HDL CHOLESTEROL 68.5 MG/DL (>40); LDL CHOLESTEROL 86.9 MG/DL (<100); NON-HDL-C 106.5 MG/DL; POTASSIUM SERUM 4.7 MMOL/L (3.5-5.1); TOTAL PROTEIN 7.2 G/DL (5.7-8.2)
[2024-05-31 15:17] LABS: HEMOGLOBIN A1c 5.4 % (4.0-6.0)
== END ==
LOC: M SFHCCLAY 07:30
PROVIDERS: ATTEND Nurse Practitioner Family
DX: E11.9 Type 2 diabetes mellitus without complications (principal); E78.5 Hyperlipidemia, unspecified; E55.9 Vitamin D deficiency, unspecified

== ENCOUNTER → 2024-12-13 | Outpatient (CLI) | payer OTHER ==
[~2024-12-13] MED LIST changes: +ERGO500029 PO; +HYDR12.510 PO; -HYDR12CA PO; +ISOVUE-370 76% 100 ML VIAL As Ordered ONE; -PRAV10TA3 PO; +PRAV10TA43 PO; +SEMA1PEN2 SQ
== END ==
LOC: M RAD 15:29
PROVIDERS: ATTEND Internal Medicine Medical Oncology
DX: C34.90 Malignant neoplasm of unspecified part of unspecified bronchus or lung (principal); J98.11 Atelectasis; Z90.2 Acquired absence of lung [part of]; I70.0 Atherosclerosis of aorta
CPT/HCPCS: 71260; Q9967

== ENCOUNTER → 2024-12-17 | Outpatient (REF) | payer OTHER ==
[~2024-12-17] MED LIST changes: -ISOVUE-370 76% 100 ML VIAL As Ordered ONE
[2024-12-17 13:57] LABS: ALT/SGPT 28.0 U/L (7.0-40); AST/SGOT 20.0 U/L (<34); CALCIUM LEVEL 10.4 MG/DL (8.3-10.6); CARBON DIOXIDE LEVEL 29.0 MMOL/L (20-31); CHLORIDE LEVEL 100.0 MMOL/L (98-107); CHOLESTEROL LEVEL 168.0 MG/DL (<200); CHOLESTEROL RISK RATIO 2.5 (<5); CREATININE FOR GFR 1.06 MG/DL (0.55-1.30); FREE T4 1.42 NG/DL (0.89-1.76); GLOMERULAR FILTRATION RATE 58.7 (>45); LDL CHOLESTEROL 83.8 MG/DL (<100); NON-HDL-C 100.8 MG/DL; POTASSIUM SERUM 4.3 MMOL/L (3.5-5.1); SODIUM LEVEL 139.0 MMOL/L (136-145); TRIGLYCERIDES LEVEL 85.0 MG/DL (<150)
[2024-12-17 14:55] LABS: ESTIMATED AVERAGE GLUCOSE 103.0 MG/DL (60-110)
== END ==
LOC: M SFHCCLAY 07:31
PROVIDERS: ATTEND Nurse Practitioner Family
DX: E11.9 Type 2 diabetes mellitus without complications (principal); I11.9 Hypertensive heart disease without heart failure; E78.5 Hyperlipidemia, unspecified; E55.9 Vitamin D deficiency, unspecified; K21.9 Gastro-esophageal reflux disease without esophagitis